=== PATIENT | female | born 1975 | race Caucasian/White ===

== ENCOUNTER 2017-10-23 05:58 | Inpatient (IN) | payer OTHER ==
[~2017-10-23] VITALS: Ht 154.9 cm; Wt 96.2 kg
--- NOTE | 2017-10-23 09:50 | History & Physical ---
General Information and HPI MD Statement: I have seen and personally examined BRANDEN CHAN and documented this H&P. The patient is a 42 year old female at [37] weeks and [1] days gestation who presented with a chief complaint of electice repeat c/s]. Source of Information: patient Exam Limitations: no limitations History of Present Illness: 42yi, , 37 1/7wks, here for elective repeat c/s due to chronic HTN and preeclampsia.she has no complaints. denies headache, no blur vision or epigastric pain, denies ctxs, no VB or LOF, fy2lamee GFM. care started at 8 wks, issues: 1. h/o HTN in 2010, she took Norvascfor 2 years, but she did not continue as per pt, she did not take any medication during this , BP was normal till 33 wk, then became labile, 24 hr urine protein 350mg on 10/20/2017.2 . h/o demise at 26 wks. 3. prior c/s x 2, 4. h/o hypothyroidism, not taking medication . 5. obesity 6.AMA Allergies/Medications Allergies: Coded Allergies: No Known Allergies (10/23/17) Home Med list [Motrin] 800 MG PO Q6P PRN UTERINE CRAMPING Compliance With Home Meds: GOOD Past History gravity meter observer History : 5 Para: 2 Last Menstrual Period: 02/05/2017 Estimated Delivery Date: 11/12/2017 Past gravity meter observer History: HTN- induced Past Pregnancies Past Pregnancies: Date of Delivery: 12/04/200311/2006 Gestational Age: 37wks and 40wks Weight: [id number] Type of Delivery: Anesthesia: spinal Complications: none Medical History Blood Transfusion Hx: No Neurological: NONE EENT: NONE Cardiovascular: hypertension Respiratory: NONE Gastrointestinal: GERD Hepatic: NONE Renal: NONE Musculoskeletal: NONE Psychiatric: NONE Endocrine: hypothyroidism, obesity Blood Disorders: NONE Cancer(s): NONE 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 Home Smoking Status: Never Smoked ETOH Use: denies use Illicit Drug Use: denies illicit drug use Review of Systems Review of Systems Constitutional: Reports: no symptoms. EENTM: Reports: no symptoms. Cardiovascular: Reports: no symptoms. Respiratory: Reports: no symptoms. GI: Reports: no symptoms. Genitourinary: Reports: see HPI. Musculoskeletal: Reports: no symptoms. Skin: Reports: no symptoms. Neurological/Psychological: Reports: no symptoms. Hematologic/Endocrine: Reports: no symptoms. Immunologic/Allergic: Reports: no symptoms. All Other Systems: Reviewed and Negative Date of LMP: 02/05/17 Post Menopausal: No Exam & Diagnostic Data Last 24 Hrs of Vital Signs/I&O Vital Signs Date Time Temp Pulse Resp B/P B/P Pulse O2 O2 Flow FiO2 Mean Ox Delivery Rate 10/23 0631 138/77 Intake & Output 10/23 1600 10/23 0800 10/23 0000 Intake Total Output Total Balance Patient 96.162 kg Weight Obstetric Exam Wgt Gained During : 14lb Pelvimetry: adequate Dilation (cm): 0 Effacement (%): 0 Station: -3 Membranes: intact Fluid: unknown Fundal Height (cm): 37 Multiple Gestation? No Contractions: occasional #1 - FHR Baseline: 130 Category: 1 Estimated Weight: 3000g Presentation: vertex Patient for Induction? No Physical Exam: VSS CV RRR Lungs CTA B/L Abdomen: gravid, soft, nontender. ext: DCT (-) Labs Blood Type & Rh: O positive Antibody Screen: negative Hct/Hgb & Platelets #1: 12.5/40.6%,[id number] Hct/Hgb & Platelets #2: 11.9/38.6%,[id number] Rubella: immune VDRL #1: negative VDRL #2: negative HbsAg: negative HIV #1: negative HIV #2 negative 1 Hr P Group B Strep: negative Initial Ultrasound: IUP at 8wks Anatomy Ultrasound: nl Genetic Testing: nl Last 24 Hrs of Labs/Azar: Microbiology 10/24 851 URINE ROUT: Urine Culture - COLB 10/24 603 URINE ROUT: Urine Culture - COLB Assessment/Plan Assessment/Plan: 42yo, 37 1/7wks, chronic HTN, preeclampsia, prior c/s, obsesity,AMA 1.admit pt, admission labs 2. R/B/A of repeat c/s, including but not limit to bleeidng, infection, damage to organs, wound infection, secondary helaing of wound, etc, d/w pt in detail, she understand, all questions ans wered, informed consent obtained. will proceed to c/s. OR team informed As Ranked By This Provider Problem List: 1. 2. Previous delivery affecting 3. Hypertension affecting 4. AMA (advanced maternal age) multigravida 35+ 5. Obesity Core Measures Venous Thromboembolism VTE Risk Factors / No Mechanical VTE Prophylaxis d/t LowRisk-No Interven Req'd No VTE Pharm Prophylaxis d/t LowRisk-No Interven Req'd Attending MD Review Statement Attending Statement Attending MD Statement: examined this patient, discussed with family, discussed w/nursing
--- NOTE | 2017-10-23 10:26 | Operative Report ---
Operative/Inv Procedure Report Surgery Date: 10/23/17 Name of Procedure: Repeat low transverse section via Pfannenstiel Pre-Operative Diagnosis: , 37 1/7wks IUP, chronic hypertension with superimposed preeclampsia, prior section, advanced maternal age, obesity Post-Operative Diagnosis: Same Estimated Blood Loss: 600ml Surgeon/Lighting Designer: Louie WAGNER,Maryam Keyes MD Anesthesia: spinal IV Fluids: 800 mL lactated Ringer's Urine Output: 100 mL clear urine at the end of procedure Specimens: Placenta Complications: None Condition: Stable Operative Indication: 42-year-old, term , prior section, chronic hypertension with superimposed preeclampsia. Operative/Procedure Note Note: The patient was taken to the operating room where spinal anesthesia was found to be adequate. She was then prepared and draped in the normal sterile fashion in the dorsosupine position with a leftward tilt. A Pfannenstiel skin incision was then made with the scalpel and carried through to the underlying layer of the fascia with the Bovie. The fascia was incised in the midline and the incision extended laterally with the Sequeira scissors. The inferior aspect of this fascial incision was then grasped with the Kwame clamps, elevated, and the underlying rectus muscle dissected off with Sequeira scissors. Attention was then turned to the superior aspect of this incision which, in a similar fashion, was grasped, tented up with the Kwame clamps, and the rectus muscle dissected off with Sequeira scissors. The rectus muscle were then in the midline, and the peritoneum identified, entered bluntly. The peritoneum incision was then extended superiorly and inferiorly with good visualization of the bladder. The bladder blade was then inserted and the vesicouterine peritoneum identified, grasp with the pickups and entered sharply with the Metzenbaum scissors. The incision was then extended laterally and the bladder flap created digitally . The bladder blade was then reinserted and the lower uterine segment incised in a transverse fashion with the scalpel. The incision was then extended laterally. The bladder blade was removed and the infant head delivered atraumatically. Nose and mouth was suctioned with the suction bulb and cord clamped and cut. The was handed off to the waiting pediatricians. The placenta was then removed manually, the uterus exteriorized, and cleared of call clots and debris. The uterine incision was repaired with 0 Vicryl in a running locked fashion. A second layer of the same suture was used to obtain excellent hemostasis. The uterus returned to the abdomen. The gutters were cleared of all clots, 1 g Lupillo was placed at uterine incision line. The peritoneum was closed with 3-0 Vicryl. 2-0 Vicryl was used to reapproximate the rectus muscles. The fascia was closed with 0 Vicryl in a running fashion. The skin was closed with 4-0 Monocryl subcuticularly. The patient tolerated the procedure well. Sponge, lap and needle counts were correct. The patient was taken to the recovery room in stable condition. Findings: live female infant as cephalic presentation, ÁLVARO position, nuchal cord 1, pediatrics present at delivery, Apgars 9 and 9, weight 6 lbs. 12 oz., normal uterus, tubes and ovaries.
--- NOTE | 2017-10-24 10:13 | PN- Post Delivery/GYN ---
Subjective Subjective: feeling well Review of Systems Constitutional: Reports: no symptoms. Denies: chills, fever. EENTM: Denies: blurred vision, double vision, visual changes. Cardiovascular: Reports: edema. Denies: chest pain, orthopena. Respiratory: Denies: cough. Gastrointestinal: Denies: diarrhea, nausea, vomiting. Neurological/Psychological: Denies: anxiety, depressed. Objective Last 24 Hrs of Vital Signs/I&O vss Physical Exam General Appearance Alert, Oriented X3, Cooperative, No Acute Distress Cardiovascular Regular Rate Lungs Clear to Auscultation Abdomen Soft, incision clean fundus firm Assessment/Plan Assessment/Plan pod #1 vss afebrile oob Problem List: 1. Hypertension affecting Attending MD Review Statement Attending Statement Attending MD Statement: examined this patient, discussed with nursing
[2017-10-24 10:22] LABS: ABSOLUTE BASOPHIL COUNT 0 /CUMM (0.0-0.2); ABSOLUTE EOSINOPHIL COUNT 0.2 /CUMM (0.0-0.7); ABSOLUTE GRANULOCYTE CT 8.5 /CUMM (1.4-6.5); ABSOLUTE LYMPH COUNT 1.7 /CUMM (1.2-3.4); ABSOLUTE MONOCYTE COUNT 0.6 /CUMM (0.10-0.60); BASOPHIL % 0.3 % (0.0-2.0); EOSINOPHIL % 1.5 % (0-5); GRANULOCYTE % 77.3 % (42.2-75.2); MEAN CORPUSCULAR HGB 30.8 PG (27.0-31.0); MEAN CORPUSCULAR HGB CONC 34.1 G/DL (33.0-37.0); MEAN CORPUSCULAR VOLUME 90.4 FL (81.0-99.0); PLATELET COUNT 147 /CUMM (130-400); RBC DISTRIBUTION WIDTH 15.4 % (11.5-14.5); RED BLOOD CELL CT 3.83 /CUMM (4.20-5.40); WHITE BLOOD CELL COUNT 10.9 /CUMM (4.8-10.8)
[2017-10-24 10:41] LABS: HEMATOCRIT 34.6 % (37-47)
--- NOTE | 2017-10-25 15:13 | PN- OBGYN ---
Surgical Brief Attending Note Brief Attending Note: PT FEELING WELL. C/O FATIGUE. 2 EPISODES OF DIZZINESS WHEN GETTING OOB TOO QUICKLY YESTERDAY. NONE TODAY. WALKING WITHOUT DIFFICULTY. PAIN WELL CONTROLLED W/ PERCOCET AND MOTRIN. NO TRUJILLO / CP / SOB. NO N/V. +DANIELA PO. +FLATUS. +BF. INC SPIROMETRY GETTING EASIER. AFEB, 98%RA, 88, 140/70, 16 NAD CTA B/L RRR ABD SOFT NT ND FF INC C/D/I W/ STERIS CARA MIN LOCHIA EXT NT TR B/L PEDAL EDEMA HCT 34.6 A/P POD 2 S/P RPT C/S FOR PEC @ 37WKS, DOING WELL -ENC OOB / AMB / INCENTIVE SPIROMETRY -PAIN MGMT ROUTINE POP CARE
[2017-10-26] MEDS ORDERED: Motrin PO (09:21)
[2017-10-26 10:43] LABS: ABSOLUTE BASOPHIL COUNT 0 /CUMM (0.0-0.2); ABSOLUTE EOSINOPHIL COUNT 0.3 /CUMM (0.0-0.7); ABSOLUTE GRANULOCYTE CT 6.8 /CUMM (1.4-6.5); ABSOLUTE LYMPH COUNT 1.2 /CUMM (1.2-3.4); ABSOLUTE MONOCYTE COUNT 0.5 /CUMM (0.10-0.60); BASOPHIL % 0.2 % (0.0-2.0); EOSINOPHIL % 3.3 % (0-5); GRANULOCYTE % 77.6 % (42.2-75.2); HEMATOCRIT 31.8 % (37-47); MEAN CORPUSCULAR HGB 31.2 PG (27.0-31.0); MEAN CORPUSCULAR HGB CONC 34.7 G/DL (33.0-37.0); MEAN CORPUSCULAR VOLUME 89.9 FL (81.0-99.0); MEAN PLATELET VOLUME 6.8 FL (7.4-10.4); PLATELET COUNT 156 /CUMM (130-400); RBC DISTRIBUTION WIDTH 15.1 % (11.5-14.5); RED BLOOD CELL CT 3.54 /CUMM (4.20-5.40); WHITE BLOOD CELL COUNT 8.8 /CUMM (4.8-10.8)
--- NOTE | 2017-10-26 13:28 | PN- Post Delivery/GYN ---
Subjective Subjective: Patient feels as though she's taken a few steps backwards in her recovery. She feels exhausted and has had a low-grade TRUJILLO. Her appetite is not good, and she describes episodes of her whole body feeling "hot". She denies scotomata, any vision changes, epigastric pain, or N&V. Patient was upset and nervous that her baby was losing weight as was going slowly, and when supplemented, the baby had projectile vomiting. Review of Systems Constitutional: Reports: malaise, weakness. EENTM: Denies: blurred vision, double vision, visual changes. Cardiovascular: Reports: edema (in both LEs and her hands feel). Respiratory: Reports: no symptoms. Gastrointestinal: Denies: abdominal pain. Genitourinary: Reports: no symptoms. Musculoskeletal: Reports: neck pain. Skin: Reports: no symptoms. Neurological/Psychological: Denies: headache. Hematologic/Endocrine: Denies: bleeding. Immunologic/Allergic: Reports: no symptoms. All Other Systems: Reviewed and Negative Objective Last 24 Hrs of Vital Signs/I&O Vital Signs Date Time Temp Pulse Resp B/P B/P Pulse O2 O2 Flow FiO2 Mean Ox Delivery Rate 10/26 1331 97.9 78 20 150/68 Physical Exam General Appearance Alert, Oriented X3, Cooperative, No Acute Distress Skin No Rashes Neck Supple Cardiovascular Regular Rate Lungs Normal Air Movement Abdomen Soft, No Hepatospenomegaly, No Masses Neurological Reflexes 2+, no clonus Extremities unchanged bilateral pedal edema Current Medications: Current Medications Sig/Krish Start time Last Medication Dose Route Stop Time Status Admin Acetaminophen 1,000 MG Q6P PRN 10/23 1145 AC N/A 1 UNIT IV Bisacodyl 10 MG DAILY NEEDED PRN 10/23 0900 AC ID Diphenhydramine HCl 25 MG Q6P PRN 10/23 0800 AC 10/23 IV 1321 Docusate Sodium 100 MG AT BEDTIME NEED.. 10/23 09 AC 10/27 PO 0143 Enoxaparin Sodium 40 MG 2100 10/23 2100 AC 10/26 SC 210 Ibuprofen 800 MG .STK-MED ONE 10/26 1938 DC PO 10/26 193 Ibuprofen 800 MG .STK-MED ONE 10/26 1333 DC PO 10/26 1334 Ibuprofen 800 MG Q6P PRN 10/23 0900 AC 10/27 PO 0759 Labetalol HCl 200 MG BID 10/26 1241 AC 10/26 PO 2106 Metoclopramide HCl 10 MG Q6P PRN 10/23 08 AC IV Naloxone HCl 0.2 MG .Q5MINS PRN 10/23 08 AC IV Omeprazole 40 MG DAILY NEEDED PRN 10/24 1930 AC 10/25 PO 1921 Oxycodone/ 1 TAB Q4P PRN 10/23 0900 AC 10/27 Acetaminophen PO 075 Oxycodone/ 2 TAB Q4P PRN 10/23 09 AC Acetaminophen PO Simethicone 80 MG Q6P PRN 10/24 1415 AC 10/25 PO 2121 Last 24 Hrs of Labs/Azar: Laboratory Tests 10/26/17 1200: Urine Color YEL, Urine Clarity HAZY H, Urine pH 6.0, Ur Specific [place] 1.020, Urine Protein NEG, Urine Ketones NEG, Urine Nitrite NEG, Urine Bilirubin NEG, Urine Urobilinogen 0.2, Ur Leukocyte Esterase NEG, Ur Microscopic SEDIMENT EXAMINED, Urine RBC 5-10 H, Ur Epithelial Cells MANY H, Urine Bacteria FEW H, Urine Hemoglobin MOD H, Urine Glucose NEG 10/26/17 0950: Estimated GFR > 60, Uric Acid 4.9, AST 57 H, ALT 49, CBC w Diff NO MAN DIFF REQ , RBC 3.54 L, MCV 89.9, MCH 31.2 H, MCHC 34.7, RDW 15.1 H, MPV 6.8 L, Gran % 77.6 H, Lymphocytes % 13.5 L, Monocytes % 5.4, Eosinophils % 3.3, Basophils % 0.2, Absolute Granulocytes 6.8 H, Absolute Lymphocytes 1.2, Absolute Monocytes 0.5, Absolute Eosinophils 0.3, Absolute Basophils 0 Microbiology 10/26 1500 GEN OR/DR: Genital Culture - CAN Cancelled: Cancelled via OE: NOT CORRECT PT 10/26 1500 GEN OR/DR: Genital Culture - CAN Cancelled: Cancelled via OE: NOT CORRECT PT Assessment/Plan Assessment/Plan Preclampsia, extending into the period, s/p repeat C/S at 37w for worsening BPs. Chronic HTN Obesity BPs are still labile on POD3 Plan is to repeat her labs now and I will speak to her about previous HTN meds and starting something now. Problem List: 1. Obesity 2. Status post section 3. Pre-eclampsia affecting with pre-existing hypertension, delivered , current hospitalization Attending MD Review Statement Attending Statement Attending MD Statement: examined this patient, reviewed EMR data (avail), discussed with nursing
--- NOTE | 2017-10-27 09:13 | PN- OBGYN ---
Surgical Brief Attending Note Brief Attending Note: POD#4 pt is resting in bed, c/o feels better today, no complaints.slight headache,no blur vision or epigastric pain. tolerate diet, void without difficulties. ambulating well PE: VSS, BP 124/78 mmHg CV RRR Lungs CTA B/L Abdomen: soft, nontender, uterus firm, fundus below umbilicus, incision D/C/I, lochia mild Ext: edema (+), DCT (-) A/P: 42yo s/p RLTCS for HTN, preeclampsia, POD#4 1. encourage ambulation an dbreastfeeidng 2. labetalol 100mg BID strated yesterday, will continue till 6 wks PP 3. elevated AST 103 (yesrterday was 57), ALT 117, in light of HTN and abnormal LFT, will start MgSO4 for seizure prophylaxis, side effetcs and complications with MgSO4 d/w pt, she understand and agreed with plan. 4. will monitor tahira
[2017-10-27 09:44] LABS: ABSOLUTE BASOPHIL COUNT 0 /CUMM (0.0-0.2); ABSOLUTE EOSINOPHIL COUNT 0.3 /CUMM (0.0-0.7); ABSOLUTE LYMPH COUNT 1.4 /CUMM (1.2-3.4); ABSOLUTE MONOCYTE COUNT 0.4 /CUMM (0.10-0.60); BASOPHIL % 0.3 % (0.0-2.0); EOSINOPHIL % 4.1 % (0-5); GRANULOCYTE % 73.6 % (42.2-75.2); MEAN PLATELET VOLUME 7.2 FL (7.4-10.4); PLATELET COUNT 168 /CUMM (130-400); RBC DISTRIBUTION WIDTH 15.2 % (11.5-14.5); RED BLOOD CELL CT 3.52 /CUMM (4.20-5.40); WHITE BLOOD CELL COUNT 8.1 /CUMM (4.8-10.8)
[2017-10-27 10:58] VITALS: BP 148/78
--- NOTE | 2017-10-28 11:39 | RADIOLOGY REPORT ---
EXAMINATION: XR CHEST CLINICAL INFORMATION: Shallow breath, low O2, chest tightness. COMPARISON: None TECHNIQUE: 2 views of the chest were obtained. FINDINGS: No significant abnormality is noted involving the heart, lungs, mediastinum, bony thorax or soft tissues. IMPRESSION: Normal examination.
--- NOTE | 2017-10-28 11:55 | PN- OBGYN ---
Surgical Brief Attending Note Brief Attending Note: pt /o earlier am, she felt SOB, and she had headaches overnight, Magnesium sulfate d/c'd 9:30AM, Mg level 5.9. After got out of bed and ambulating, pt felt better, no complaints currently. PE: VSS CV RRR Lungs CTA B/L Abdomen: soft, nontender, uterus firm, fundus below umbilicus. incision D/C/I, lochia mild Ext: DCT(-) A/P: 42yo, s/p RLTCS, POD#5, s/p Magnesium sulfate treatment. 1. chest X-ray WNL 2. encourage ambulation 3. will d/c home later PM if pt is stable 4. continue labetalol 200mg BID 5. f/u in office in 1 wk. discharge instructions given.
[2017-10-28] MEDS ORDERED: PERCOCET 5-3251 EACH PO (11:58)
[2017-10-28] MEDS ORDERED: LABETALOL HCL200 M1 PO (11:58)
--- NOTE | 2017-10-31 09:57 | Discharge Summary ---
Visit Information Visit Dates Admission Date: 10/23/17 Discharge Date: 10/28/17 Hospital Course Course Attending Physician: Maryam Palma MD Primary Care Physician: Patient Has No Primary Care Dr Hospital Course: 42-year-old,, she was admitted for repeat section on October 23, 2017. Patient tolerated the procedure well , delivered a viable in cephalic presentation without complications. During the hospital stay, patient remained in stable condition, she tolerates diet, voiding without difficulties, ambulating well. On exam, abdomen was soft, nontender, incision dry clean and intact, lochia mild. Her blood pressure was labile, she was found to have mild elevated liver function test, she received magnesium sulfate for seizure prophylaxis due to preeclampsia. Patient was discharged on October 28, 2017 with instructions given. Complications: None Allergies: Coded Allergies: No Known Allergies (10/23/17) Significant Procedures: Repeat low transverse section Via Pfannenstiel Disposition Summary Disposition Principal Diagnosis: , 37 1/7wks IUP, chronic hypertension with superimposed preeclampsia, prior section, advanced maternal age, obesity Additional Diagnosis: None Discharge Disposition: home or self care Discharge Instructions General Discharge Information Code Status: Full Code Patient's Diet: Regular Patient's Activity: As tolerated Follow-Up Instructions/Appts: Pelvic rest and no heavy lifting for 6 weeks Continue labetalol 200 mg twice a day, follow-up in office in 1 week for blood pressure check Preeclampsia precautions given. Medications at Discharge Discharge Medications: Start taking the following new medications: [Motrin] 800 Milligram ORAL EVERY SIX HOURS NEEDED as needed for UTERINE CRAMPING No Refills Labetalol HCl (Labetalol HCl) 200 MG TABLET 200 Milligram ORAL TWICE DAILY Qty = 30 No Refills Comments: Last Taken: Time: 10/28/2017 at 0900 Oxycodone HCl/Acetaminophen (Percocet 5-325 MG Tablet) 5 MG-325 MG TABLET 2 Tablet ORAL EVERY 4 HOURS NEEDED as needed for PAIN SCALE 7-10 (SEVERE) Qty = 30 No Refills Copies To: Maryam Palma MD Attending Review Statement Documenting Attending: Maryam Palma MD
== END 2017-10-28 14:45 | DRG 540 ==
LOC: GNO 05:58
PROVIDERS: Obstetrics & Gynecology
PROC: 10D00Z1 Extraction of Products of Conception, Low, Open Approach (ICD-10-PCS; principal; 2017-10-23)
DX: O11.4 Pre-existing hypertension with pre-eclampsia, complicating childbirth (principal); O34.211 Maternal care for low transverse scar from previous cesarean delivery; N85.8 Other specified noninflammatory disorders of uterus; O69.81X0 Labor and delivery complicated by cord around neck, without compression, not applicable or unspecified; O99.214 Obesity complicating childbirth; Z68.41 Body mass index [BMI] 40.0-44.9, adult; Z37.0 Single live birth; Z3A.37 37 weeks gestation of pregnancy
CPT/HCPCS: 87070; GNOS; 36415; 71046; 81001; 82570; 87086; J0131; J0690; J1200; J1650; J1885; J3475; J7120

== ENCOUNTER 2017-11-02 15:15 | Inpatient (IN) | payer OTHER ==
[~2017-11-02] VITALS: Ht 154.9 cm; Wt 91.2 kg
[~2017-11-02 15:15] MED LIST: LABETALOL HCL200 M1 PO; Motrin PO; PERCOCET 5-3251 EACH PO
[2017-11-02 16:12] LABS: ABSOLUTE BASOPHIL COUNT 0 /CUMM (0.0-0.2); ABSOLUTE EOSINOPHIL COUNT 0.4 /CUMM (0.0-0.7); ABSOLUTE LYMPH COUNT 1.5 /CUMM (1.2-3.4); ABSOLUTE MONOCYTE COUNT 0.7 /CUMM (0.10-0.60); BASOPHIL % 0.2 % (0.0-2.0); EOSINOPHIL % 4.4 % (0-5); GRANULOCYTE % 72.2 % (42.2-75.2); HEMATOCRIT 36.3 % (37-47); MEAN CORPUSCULAR HGB 30.4 PG (27.0-31.0); MEAN CORPUSCULAR HGB CONC 33.4 G/DL (33.0-37.0); MEAN CORPUSCULAR VOLUME 90.8 FL (81.0-99.0); MEAN PLATELET VOLUME 6.6 FL (7.4-10.4); RBC DISTRIBUTION WIDTH 15.1 % (11.5-14.5); RED BLOOD CELL CT 3.99 /CUMM (4.20-5.40); WHITE BLOOD CELL COUNT 9.6 /CUMM (4.8-10.8)
[2017-11-02 16:15] LABS: PLATELET COUNT 268 /CUMM (130-400)
[2017-11-02] MEDS ORDERED: CITRANATAL B-C1 EACH PO (17:12)
--- NOTE | 2017-11-02 17:39 | ED GENERAL ADULT ---
History of Present Illness General Chief Complaint: General Adult Stated Complaint: SENT BY FOR HIGH BLOOD PRESSURE Source: patient Exam Limitations: no limitations Vital Signs & Intake/Output Vital Signs & Intake/Output Vital Signs Date Time Temp Pulse Resp B/P B/P Pulse O2 O2 Flow FiO2 Mean Ox Delivery Rate 07/06 0313 176/90 07/06 0231 98.1 71 20 170/96 07/06 0225 71 170/96 07/06 0211 98.1 74 20 182/116 07/06 0125 182/116 07/06 0008 74 20 162/86 97 07/05 2301 78 19 179/89 99 Room Air 07/05 2240 173/83 07/05 2238 173/83 07/05 2057 184/89 / 1953 88 20 209/110 100 07/05 1951 209/110 07/05 1804 174/99 07/05 1621 77 15 170/85 99 Room Air 07/05 1614 98.1 73 18 170/85 99 Room Air 07/05 1556 98.4 70 18 184/106 99 Room Air ED Intake and Output / 0000 07/05 1200 Intake Total Output Total Balance Patient 203 lb Weight Allergies Coded Allergies: No Known Allergies (10/23/17) Triage Note: 42F TO ED FOR PREECLAMPSIA, POST September DELIVERY. FOLLOWED BY DR HUTCHINSON. +HEADACHE X1 HOUR. DENIES CP/SOB/PALP. + BLURRED VISION X1 DAY. MANUAL BP 184/106 IN TRIAGE. SPEECH CLEAR, FOCAL NEUROS GROSSLY INTACT Triage Nurses Notes Reviewed? yes : No Patient currently breastfeeds: Yes HPI: Patient presents for evaluation of elevated blood pressure 10 days status . Patient had a section due to her high blood pressure and the possibility of preeclampsia. She was placed on 200 mg of labetalol twice daily. (Masha WAGNER,Robert Tam) Reconcile Medications Labetalol HCl 300 MG TABLET 2 TAB PO BID high blood pressure Labetalol HCl 200 MG TABLET 200 MG PO BID HIGH BLOOD PRESSURE [Motrin] 800 MG PO Q6P PRN UTERINE CRAMPING Oxycodone HCl/Acetaminophen (Percocet 5-325 MG Tablet) 5 MG-325 MG TABLET 2 TAB PO Q4P PRN PAIN SCALE 7-10 (SEVERE) #48/Iron Cb&Glu/FA/B6 (Citranatal B-Calm Combo Pack) 20 MG IRON-1 MG-25 MG/25 MG TABLET.SEQ 1 CAP PO DAILY VITAMIN (Reported) (Ricky Marino MD) Past History Travel History Traveled to [place] past 21 day No Medical History Neurological: NONE EENT: NONE Cardiovascular: hypertension Respiratory: NONE Gastrointestinal: GERD Hepatic: NONE Renal: NONE Musculoskeletal: NONE Psychiatric: NONE Endocrine: hypothyroidism, obesity Blood Disorders: NONE Cancer(s): NONE MAPPING 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 see below for history Family History Hx Contributory? No (Ricky Marino MD) Review of Systems Review of Systems Constitutional: Reports: no symptoms. EENTM: Reports: no symptoms. Respiratory: Reports: no symptoms. Cardiovascular: Reports: no symptoms. GI: Reports: no symptoms. Genitourinary: Reports: no symptoms. Musculoskeletal: Reports: no symptoms. Skin: Reports: no symptoms. Neurological/Psychological: Reports: no symptoms. Hematologic/Endocrine: Reports: no symptoms. Immunologic/Allergic: Reports: no symptoms. All Other Systems: Reviewed and Negative (Ricky Marino MD) Physical Exam Physical Exam General Appearance: SEE BELOW Comments: Gen.: Well-nourished, well-developed, no acute respiratory distress. Head: Normocephalic, atraumatic. Eyes: Normal inspection bilaterally Ears: Normal inspection bilaterally Nose: Normal inspection Throat/mouth : Moist mucosa Neck: Supple, full range of motion, no goiter Heart: Regular rate and rhythm, no murmurs rubs or gallops Lungs: Clear to auscultation bilaterally with normal air entry Chest: Nontender Back: Normal range of motion Abdomen: Soft, nontender, nondistended, normal bowel sounds Extremities: Normal range of motion grossly, equal radial pulses, no cyanosis clubbing or edema Neurologic: Cranial nerves grossly intact, speech is clear Skin: warm and dry Psychiatric: Calm, cooperative, no apparent delusions or hallucinations (Masha WAGNER,Robert Tam) Core Measures ACS in differential dx? No CVA/TIA Diagnosis: No Sepsis Present: No Sepsis Focused Exam Completed? No (Ricky Marino MD) Progress Differential Diagnoses I considered the following diagnoses in my evaluation of the patient: Plan of Care: Orders Procedure Date/time Status Nothing by Mouth 11/03 B Active ICU LAB BUNDLE 11/03 499 Active CBC WITHOUT DIFFERENTIAL 11/03 499 Active Patient Data 11/03 0239 Active Patient Data 11/03 014 Active Saline Lock 11/03 138 Active Misc Message 11/03 138 Active ED Holding Orders 11/03 138 Active Admit to inpatient 11/03 138 Active Vital Signs 11/03 138 Active Code Status 11/03 138 Active Add-on Test (ER Only) 11/02 1650 Active Intake & Output 11/02 155 Active LDH (LACT ACID DEHYDROGENASE) 11/02 1550 Complete URINALYSIS 11/02 1537 Complete TROPONIN LEVEL 11/02 1523 Complete COMPREHENSIVE METABOLIC PANEL 11/02 1523 Complete CBC WITHOUT DIFFERENTIAL 11/02 1523 Complete EKG 11/02 1523 Active Laboratory Tests 11/02/17 1550: Anion Gap 10, Estimated GFR 55 L, BUN/Creatinine Ratio 10.0, Glucose 89, Calcium 9.5, Total Bilirubin 0.5, AST 48 H, ALT 86 H, Alkaline Phosphatase 79, Lactate Dehydrogenase 723 H, Troponin I < 0.01, Total Protein 6.8, Albumin 3.7, Globulin 3.1, Albumin/Globulin Ratio 1.2, CBC w Diff NO MAN DIFF REQ, RBC 3.99 L, MCV 90.8, MCH 30.4, MCHC 33.4, RDW 15.1 H, MPV 6.6 L, Gran % 72.2, Lymphocytes % 15.9 L, Monocytes % 7.3, Eosinophils % 4.4, Basophils % 0.2, Absolute Granulocytes 7.0 H, Absolute Lymphocytes 1.5, Absolute Monocytes 0.7 H, Absolute Eosinophils 0.4, Absolute Basophils 0 11/02/17 1421: Urine Color YEL, Urine Clarity CLEAR, Urine pH 6.0, Ur Specific Hardin 1.010, Urine Protein TRACE H, Urine Ketones NEG, Urine Nitrite POS H, Urine Bilirubin NEG, Urine Urobilinogen 0.2, Ur Leukocyte Esterase SMALL H, Ur Microscopic SEDIMENT EXAMINED, Urine RBC 1-3, Urine WBC 5-10 H, Ur Epithelial Cells RARE, Urine Bacteria MOD H, Urine Hemoglobin MOD H, Urine Glucose NEG Comments: 11/02/2017 5:37:57 PM patient's case discussed with Dr. Gallagher who is requesting a medicine consult for management of patient's hypertension. 11/02/2017 5:45:13 PM patient's case discussed with Dr. Perkins who agrees with an increased dose of labetalol and reevaluation of blood pressure. 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 (Masha WAGNER,Robert Tam) Differential Diagnoses I considered the following diagnoses in my evaluation of the patient: post pre-eclampsia, hyerptensive emergency/urgency vs other. Diagnostic Imaging: Viewed by Me: CT Scan. Discussed w/RAD: CT Scan. Radiology Impression: PATIENT: BRANDEN CHAN PRESENT AGE: 42 PATIENT ACCOUNT NO: [id number] : 76 LOCATION: [facility] ORDERING PHYSICIAN: Ricky Marino MD SERVICE DATE: 11/03/17 EXAM TYPE: CAT - CT HEAD WO IV CONTRAST EXAMINATION: CT HEAD WITHOUT CONTRAST CLINICAL INFORMATION: Headache. COMPARISON: None TECHNIQUE: Contiguous axial imaging was performed from the skull base to vertex without intravenous administration of contrast. DLP: 606.95 mGy-cm FINDINGS: There is no evidence of acute intracranial hemorrhage or territorial infarction. No abnormal mass effect or midline shift is seen. Boucher to white matter differentiation is well preserved. No extra-axial fluid collections are identified. The ventricles are normal in size. There is no abnormal attenuation within the brain parenchyma. The osseous structures and soft tissues are normal. The mastoid air cells and visualized portions of the paranasal sinuses are well aerated. IMPRESSION: No acute intracranial pathology. DICTATED BY: Dagoberto Junior MD DATE/TIME DICTATED:11/03/17224 SENIOR WINDOWS SYSTEMS ADMINISTRATOR:BEATRIZ DATE/TIME TRANSCRIBED:11/03/17224 CONFIDENTIAL, DO NOT COPY WITHOUT APPROPRIATE AUTHORIZATION. <Electronically signed in Other Vendor System> SIGNED BY: Dagoberto Junior MD 11/03/17 0230 Initial ED EKG: sinus, no acute changes (Ned WAGNER,Ricky Waters) Departure Departure Disposition: HOME OR SELF CARE Condition: Stable Referrals: Patient Has No Primary Care Dr (PCP/Family) Additional Instructions: INCREASE YOUR DOSE OF LABETOLOL TO 400MG TWICE DAILY. Begin taking hydrochlorothiazide. Low-salt diet. Follow-up with the [facility] as soon as possible for repeat blood pressure evaluation and possible medication adjustments. Please update Dr. Gallagher on your progress. Return if any concerns or sudden worsening. Thank you for choosing the [facility] Department for your care. It was a pleasure to serve you today. Robert Flanagan M.D. [facility] Departure Forms: Customer Survey General Discharge Information (Masha WAGNER,Robert Tam) Departure Clinical Impression Primary Impression: Hypertensive urgency Prescriptions: Current Visit Scripts Labetalol HCl 2 TAB PO BID #120 TAB Comments 11/02/17, 22:28... pt comfortable, still with headache, sbp 180's... pt wishes to go home... will give dose of enalapril and labetolol and follow up in 1 hour. 11/03/17, 1:04am... pt sleeping comfortably, headache resolved, vision changes resolved.... pt wishes to go home... will give labetolol 600mg bid... pt to return later today if not feeling well. 11/03/17, 1:40am... pt's headache returns, blurry vision... sbp 184... will give labetolol 20mg hydralazine 10mg, head ct scan... pt to be admitted. 11/03/17, 1:57am... discussed with dr. hutchinson... Admission Note Spoke With: Dawna Bronson MD Documentation of Exam: Documentation of any treatments & extenuating circumstances including Concerns Regarding Discharge (functional status, medication knowledge or non-compliance, living conditions, etc.) that warrant an admission rather than observation: pt with hyperstensive emergency, possibly post- pre-eclampsia (although without proteinuria)... pt merits iv blood pressure medications, consider labetolol gtt if not responding. (Ned WAGNER,Ricky Waters) Critical Care Note Critical Care Note Critical Care Time: 75-104 min (Ned WAGNER,Ricky Waters)
[2017-11-03] MEDS ORDERED: LABETALOL HCL300 M1 PO (01:04)
--- NOTE | 2017-11-03 02:29 | History & Physical ---
Zoie Monaco 11/03/17 0226: General Information and HPI History of Present Illness: Jeffrey Moses is a 42 YO female with PMHx. of Hypothyroidism, HTN, and carpal tunnel syndrome who presents to the ED with a chief concern of "headache and blurry vision." Patient states she recently gave to her third child prematurely 10 days s/p . Patient states the procedure was expedited due to her repeated elevations in blood pressure. Patient states she delivered at 37 weeks and that after delivery her blood pressure became elevated. Patient states that she was given Magnesium in the hospital and subsequently sent home with instructions to monitor her blood pressure. Patient states she has been experiencing symptoms of headache, blurry vision, and peripheral edema. Patient denies symptoms of fever, cough, dyspnea, abdominal pain, chest pain, diarrhea, and weakness. Patient states her DIRECTOR OF PROFESSIONAL SERVICES had prescribed her baby aspirin to prevent preelampsia during the , and once she stopped taking Aspirin around 36 weeks her blood pressure went up within 3 days. Patient states her blood pressure has since been trending in the 160s. Patient, for the most part, denies any family history of cardiac issues except that her father had a CABG procedure. Patient denies smoking or any alcohol consumption. 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 Patient is a mother of three children, 1 boy and two girls. Patient states all her children were born via C- section. Allergies/Medications Allergies: Coded Allergies: No Known Allergies (10/23/17) Home Med list Labetalol HCl 300 MG TABLET 2 TAB PO BID high blood pressure Labetalol HCl 200 MG TABLET 200 MG PO BID HIGH BLOOD PRESSURE [Motrin] 800 MG PO Q6P PRN UTERINE CRAMPING Oxycodone HCl/Acetaminophen (Percocet 5-325 MG Tablet) 5 MG-325 MG TABLET 2 TAB PO Q4P PRN PAIN SCALE 7-10 (SEVERE) #48/Iron Cb&Glu/FA/B6 (Citranatal B-Calm Combo Pack) 20 MG IRON-1 MG-25 MG/25 MG TABLET.SEQ 1 CAP PO DAILY VITAMIN (Reported) Past History Travel History Traveled to [place] past 21 day No Medical History Neurological: NONE EENT: NONE Cardiovascular: hypertension Respiratory: NONE Gastrointestinal: GERD Hepatic: NONE Renal: NONE Musculoskeletal: NONE Psychiatric: NONE Endocrine: hypothyroidism, obesity Blood Disorders: NONE Cancer(s): NONE 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 EENTM: Reports: blurred vision, double vision, visual changes. Cardiovascular: Denies: chest pain, orthopena, palpitations. Respiratory: Denies: cough, orthopnea, short of breath. GI: Denies: abdominal pain. Genitourinary: Denies: dysuria. Musculoskeletal: Denies: joint pain, muscle pain. Skin: Denies: no symptoms. Neurological/Psychological: Reports: headache. Denies: numbness. Exam & Diagnostic Data Last 24 Hrs of Vital Signs/I&O Vital Signs Date Time Temp Pulse Resp B/P B/P Pulse O2 O2 Flow FiO2 Mean Ox Delivery Rate 11/03 0225 71 170/96 / 0211 98.1 74 20 182/116 07/06 0125 182/116 07/06 0008 74 20 162/86 97 07/05 2301 78 19 179/89 99 Room Air 07/05 2240 173/83 07/05 2238 173/83 07/05 2057 184/89 07/05 1953 88 20 209/110 100 07/05 1951 209/110 07/05 1804 174/99 07/05 1621 77 15 170/85 99 Room Air 07/05 1614 98.1 73 18 170/85 99 Room Air 07/05 1556 98.4 70 18 184/106 99 Room Air Intake & Output 11/03 0800 07/06 0000 07/05 1600 Intake Total Output Total Balance Patient 203 lb Weight Physical Exam General Appearance Alert, Oriented X3, Cooperative, No Acute Distress Skin No Rashes HEENT Atraumatic, PERRLA Neck Supple, No JVD Lymphatic Cervical nl Cardiovascular Normal S1, Normal S2 Lungs Clear to Auscultation Abdomen Soft, No Tenderness Neurological Strength at 5/5 X4 Ext, Normal Tone Extremities Normal Pulses Assessment/Plan Assessment: Problem List * Hypertensive Urgency * h/o Preeclampsia * h/o HTN * h/o Hypothyroidism * , - Admit to ICU for cardiac monitoring and adequate control of blood pressure with IV Labetalol gtt - Hypertensive Urgency should be managed appropriately to target normal values over the next 24-48 hours with IV blood pressure lowering agents to prevent cardiac, neurological, and acute kidney injury - Serial Troponin and EKG monitoring - Head CT w/o Contrast: No acute intracranial pathology. - Pertinent Lab findings: Cr 1.1, AST 49, ALT 87 - AM Cardiology Consult - DVT PPx. As Ranked By This Provider Problem List: 1. Hypertensive urgency 2. Status post section 3. Pre-eclampsia affecting with pre-existing hypertension, delivered , current hospitalization Core Measures/Misc (01/15) Acute Coronary Syndrome ACS Diagnosis: No Congestive Heart Failure Congestive Heart Failure Diagnosis No Cerebrovascular Accident CVA/TIA Diagnosis: No VTE (View Protocol) VTE Risk Factors Acute Medical Illness No Mechanical VTE Prophylaxis d/t N/A MechProphylax Ordered No VTE Pharm Prophylaxis d/t NA PharmProphylax ordered Sepsis (View protocol) Sepsis Present: No If YES complete Sepsis Event Note If YES complete Sepsis Event Note Rashel Wall 11/03/17 0504: Core Measures/Misc (01/15) Sepsis (View protocol) If YES complete Sepsis Event Note If YES complete Sepsis Event Note Resident Review Statement Resident Statement: examined this patient, discussed with quality assurance intern Other Findings: Ms Murphy is a 42 year old woman w/ a PMHx of hypothyroidism(not on any LT4) , hypertension, class 2 obesity, day 11 after (10/23). She has a history of HTN, and was treated intermittently with anti-hypertensives; and was started on ASA only. She was found to have had high blood pressure and preeclampsia after she underwent . She was treated w/ MagSulf drip for the treatment of pre-ecclampsia. She also had elevated transaminases. She was started on 200 mg labetalol twice daily po at the time of dc. Also reported headache, and blurry vision for the last 1 day, but no epigastric pain. She repoted pedal edema, but no erythema. While she was in the ER, she had blood pressure elevated associated with headache. Initial plan was to discharge the patient on labetalol 600 mg twice a day, but she continued to have headache and blurry vision. Labetalol 200 mg by mouth HCl 12.5 mg by mouth, labetalol 20 g IV, labetalol 20 mg IV, enalaprilat 1.25 IV, hydralazine 5 mg IV, hydralazine 10 mg IV, labetalol 20 g IV. At the time of admission-vitals temperature 98.4, pulse rate 70, respiration 18, blood pressure 184/106, 99% on room air. General Exam: AAOx3, No acute distress, Skin: No rashes, no breakdown;HEENT: PERRLA, EOMI;Neck: Supple, No JVD; No cervical lymphadenopathy;CVS: Reg Rate, Normal S1,S2, No MGR;Resp: Normal air entry, no ronchi/rales;Abdomen: Soft, No tenderness, Normal Bowel Sounds;Neuro: Normal Speech, Strength 5/5 b/l x 4 extremities, Sensation intact, CN III-XII NL, Reflexes 2+;Extremities: No cyanosis, 3+ pedal edema. Blood pressure trend in the emergency room since 11/02 4 PM:184/106-->170/85--> 170/85-->174/99-->209/110-->184/84-->173/83-->179/89-->163/86-->182/116 Pertinent lab findings: WBC 9.6, hemoglobin 12.1, platelet count 268. Sodium 142, potassium 4.7, chloride 106, bicarbonate 26, anion gap 10 BUN 11, creatinine 1.1. (Baseline 0.8-10/27/2017) AST 48, ALT 86, alkaline phosphatase 79, lactate dehydrogenase 273 AST trend 57(10/26)-->103(10/27)-->48(11/02) ALT trend 49(10/26)-->117(10/27)-->86(11/02) Urinalysis revealed trace protein, urine nitrite positive. Etiology in her case is pre-ecclampsia which is usually within 6 wks, which needs to be aggressively addressed. Other complications ecampsia with seizures, HELLP syndrome should be cautiously watched. In regards to his etiology, it could be superimposed pre-eclampsia. Problem list: 1. Post pre-eclampsia 2. Hypertensive urgency 3. h/o hypothyroidism ( not on any meds) - Admit to the ICU for labetolol drip - In Shop Service Technician consult. - Check LFTs, CBCs daily - Start 20mg iv over 2 min w/ recurrent doses every 10' till SBP < 140, and start the drip at 2mg/min. Discussed w/ pharmacy+attending. -Start po labetolol in the am. -Check EKGs and Trops. -Monitor for proteinuria, platelets. -Supplemental oxygen as needed -Tylenol for headache, and monitor for worsening headache -Serial abdominal exams -Check LDH daily, if possible -Check TSHR. DVT Ppx- heparin sc. Full code
--- NOTE | 2017-11-03 02:30 | CT SCAN REPORT ---
EXAMINATION: CT HEAD WITHOUT CONTRAST CLINICAL INFORMATION: Headache. COMPARISON: None TECHNIQUE: Contiguous axial imaging was performed from the skull base to vertex without intravenous administration of contrast. DLP: 606.95 mGy-cm FINDINGS: There is no evidence of acute intracranial hemorrhage or territorial infarction. No abnormal mass effect or midline shift is seen. Boucher to white matter differentiation is well preserved. No extra-axial fluid collections are identified. The ventricles are normal in size. There is no abnormal attenuation within the brain parenchyma. The osseous structures and soft tissues are normal. The mastoid air cells and visualized portions of the paranasal sinuses are well aerated. IMPRESSION: No acute intracranial pathology.
[2017-11-03 04:52] LABS: ABSOLUTE BASOPHIL COUNT 0 /CUMM (0.0-0.2); ABSOLUTE EOSINOPHIL COUNT 0.4 /CUMM (0.0-0.7); ABSOLUTE GRANULOCYTE CT 7.8 /CUMM (1.4-6.5); ABSOLUTE LYMPH COUNT 1.6 /CUMM (1.2-3.4); ABSOLUTE MONOCYTE COUNT 0.7 /CUMM (0.10-0.60); BASOPHIL % 0.2 % (0.0-2.0); EOSINOPHIL % 3.8 % (0-5); GRANULOCYTE % 73.8 % (42.2-75.2); HEMATOCRIT 37.1 % (37-47); MEAN CORPUSCULAR HGB 30.5 PG (27.0-31.0); MEAN CORPUSCULAR HGB CONC 33.5 G/DL (33.0-37.0); MEAN PLATELET VOLUME 6.6 FL (7.4-10.4); PLATELET COUNT 291 /CUMM (130-400); RBC DISTRIBUTION WIDTH 14.9 % (11.5-14.5); RED BLOOD CELL CT 4.08 /CUMM (4.20-5.40); WHITE BLOOD CELL COUNT 10.5 /CUMM (4.8-10.8)
[2017-11-03 08:00] VITALS: BP 152/84
--- NOTE | 2017-11-03 08:07 | Cons- CRCU ---
Vasile Rodriguez 11/03/17 0807: General Information and HPI Consulting Request Date of Consult: 11/02/17 Requested By: Dr. Bronson Reason for Consult: Hypertensive urgency s/p due to preeclampsia 10days ago Source of Information: patient History of Present Illness: 42 year old F with a PMH significant for HTN and hypothyroidism who presented to the ED c/o headache and blurry vision. The patient states she was put on HTN medication by her PCP for about two years before stopping due to normalization of BP. Of note, patient is s/p on october 22 ago due to chronic htn with superimposed preeclampsia that was managed with aspirin. On discharge, she was prescribed labetalol 200mg BID and pt was compliant. On 11/02 patient states she went for her checkup where it was found she had a BP "in the 170s" and was then advised to go to the ED. Upon arrival, pt had BP of 184/106 going as high as 209/110, complaining of a strong diffuse headache accompanied by blurry vision. Head CT on admit was negative for intracranial pathology -- she was then transferred to the ICU for management of hypertensive urgency. Allergies/Medications Allergies: Coded Allergies: No Known Allergies (10/23/17) Home Med List: Labetalol HCl 300 MG TABLET 2 TAB PO BID high blood pressure Labetalol HCl 200 MG TABLET 200 MG PO BID HIGH BLOOD PRESSURE [Motrin] 800 MG PO Q6P PRN UTERINE CRAMPING Oxycodone HCl/Acetaminophen (Percocet 5-325 MG Tablet) 5 MG-325 MG TABLET 2 TAB PO Q4P PRN PAIN SCALE 7-10 (SEVERE) #48/Iron Cb&Glu/FA/B6 (Citranatal B-Calm Combo Pack) 20 MG IRON-1 MG-25 MG/25 MG TABLET.SEQ 1 CAP PO DAILY VITAMIN (Reported) Current Medications: Current Medications Sig/Krish Start time Last Medication Dose Route Stop Time Status Admin Acetaminophen 650 MG ONCE ONE 11/03 644 DC 11/03 PO 11/03 Acetaminophen 1,000 MG ONCE ONE 11/02 1944 DC 11/02 N/A 1 UNIT IV 11/02 Acetaminophen 0 .STK-MED ONE 11/03 1939 DC IV Enalaprilat 1.25 MG STAT STA 07/05 2240 DC 07/ IV 11/02 2241 2240 Enalaprilat 0 .STK-MED ONE 11/02 2233 DC IV Enalaprilat 1.25 MG STAT STA 11/02 2223 CAN IV 11/02 2224 Heparin Sodium 5,000 UNIT Q8 11/03 0600 AC 11/03 (Porcine) SC 0623 Hydralazine HCl 0 .STK-MED ONE 11/03 0227 DC .ROUTE Hydralazine HCl 10 MG ONCE ONE 11/03 0145 DC 11/03 IV 11/03 0146 0231 Hydralazine HCl 5 MG ONCE ONE 11/02 2245 DC 07/ IV 11/02 2246 2238 Hydrochlorothiazide 12.5 MG ONCE ONE 11/02 191 DC 11/02 PO 11/02 191 195 Ketorolac 30 MG ONCE ONE 11/02 2345 DC 11/02 Tromethamine IV 11/02 2346 2354 Ketorolac 0 .STK-MED ONE 11/02 2337 DC Tromethamine .ROUTE Labetalol HCl 400 MG Q3H 11/03 0815 AC Dextrose/Water 400 ML IV Labetalol HCl 20 MG ONCE ONE 11/03 0500 DC 07 IV 11/03 0501 0626 Labetalol HCl 200 MG Q24H 11/03 0415 DC 11/03 Dextrose/Water 200 ML IV 0627 Labetalol HCl 0 .STK-MED ONE 11/03 0149 DC IV Labetalol HCl 20 MG ONCE ONE 11/03 0145 DC 11/03 IV 11/03 0146 0211 Labetalol HCl 20 MG ONCE ONE 11/02 2230 DC 07/ IV 11/02 223 2238 Labetalol HCl 20 MG ONCE ONE 11/02 194 DC 07/ IV 11/02 194 1951 Labetalol HCl 0 .STK-MED ONE 11/02 1940 DC IV Labetalol HCl 200 MG ONCE ONE 11/02 174 DC 07/ PO 11/02 174 1804 Review of Systems Review of Systems Constitutional: Reports: see HPI. EENTM: Denies: blurred vision, double vision, visual changes, eye pain. Cardiovascular: Reports: no symptoms. Respiratory: Reports: no symptoms. GI: Reports: no symptoms. Genitourinary: Reports: no symptoms. Neurological/Psychological: Reports: headache. Denies: no symptoms. Past History Travel History Traveled to [place] past 21 day No Medical History Blood Transfusion Hx: No Neurological: migraine EENT: NONE Cardiovascular: hypertension Respiratory: NONE Gastrointestinal: GERD, hiatal hernia Hepatic: NONE Renal: NONE Musculoskeletal: NONE Psychiatric: NONE Endocrine: hypothyroidism, obesity Blood Disorders: NONE Cancer(s): NONE [employer]/Reproductive: NONE Surgical History Surgical History: appendectomy, cholecystectomy, Psychosocial History Where Do You Live? Home Services at Home: None Smoking Status: Never Smoked ETOH Use: denies use Illicit Drug Use: denies illicit drug use Exam & Diagnostic Data Last 24 Hrs of Vital Signs/I&O Intake & Output 11/03 1600 11/03 0800 11/03 0000 Intake Total 120 Output Total 550 Balance -430 Intake, IV 0 Intake, Oral 120 Number 0 Bowel Movements Output, Urine 550 Patient 201 lb Weight Weight Bed scale Measurement Method Laboratory Tests 11/03 11/03 11/03 1030 0600 0426 Chemistry Sodium (137 - 145 mmol/L) Cancelled 142 Potassium (3.5 - 5.1 mmol/L) Cancelled 4.1 Chloride (98 - 107 mmol/L) Cancelled 105 Carbon Dioxide (22 - 30 mmol/L) Cancelled 27 Anion Gap (5 - 16) Cancelled 11 BUN (7 - 17 mg/dL) Cancelled 12 Creatinine (0.5 - 1.0 mg/dL) Cancelled 1.1 H Estimated GFR (>60 ml/min) 55 L Glucose (65 - 99 mg/dL) Cancelled 96 Calcium (8.4 - 10.2 mg/dL) Cancelled 9.2 Phosphorus (2.5 - 4.5 mg/dL) Cancelled 3.4 Magnesium (1.6 - 2.3 mg/dL) Cancelled 2.0 Total Bilirubin (0.2 - 1.3 mg/dL) Cancelled 0.5 AST (14 - 36 U/L) Cancelled 49 H ALT (9 - 52 U/L) Cancelled 87 H Troponin I (< 0.11 ng/ml) < 0.01 < 0.01 Albumin (3.5 - 5.0 g/dL) Cancelled 3.5 Hematology CBC w Diff Cancelled NO MAN DIFF REQ WBC (4.8 - 10.8 /CUMM) Cancelled 10.5 RBC (4.20 - 5.40 /CUMM) Cancelled 4.08 L Hgb (12.0 - 16.0 G/DL) Cancelled 12.4 Hct (37 - 47 %) Cancelled 37.1 MCV (81.0 - 99.0 FL) Cancelled 91.0 MCH (27.0 - 31.0 PG) Cancelled 30.5 MCHC (33.0 - 37.0 G/DL) Cancelled 33.5 RDW (11.5 - 14.5 %) Cancelled 14.9 H Plt Count (130 - 400 /CUMM) Cancelled 291 MPV (7.4 - 10.4 FL) Cancelled 6.6 L Gran % (42.2 - 75.2 %) 73.8 Lymphocytes % (20.5 - 51.1 %) 15.6 L Monocytes % (1.7 - 9.3 %) 6.6 Eosinophils % (0 - 5 %) 3.8 Basophils % (0.0 - 2.0 %) 0.2 Absolute Granulocytes (1.4 - 6.5 /CUMM) 7.8 H Absolute Lymphocytes (1.2 - 3.4 /CUMM) 1.6 Absolute Monocytes (0.10 - 0.60 /CUMM) 0.7 H Absolute Eosinophils (0.0 - 0.7 /CUMM) 0.4 Absolute Basophils (0.0 - 0.2 /CUMM) 0 11/02 11/02 1550 1421 Chemistry Sodium (137 - 145 mmol/L) 142 Potassium (3.5 - 5.1 mmol/L) 4.7 Chloride (98 - 107 mmol/L) 106 Carbon Dioxide (22 - 30 mmol/L) 26 Anion Gap (5 - 16) 10 BUN (7 - 17 mg/dL) 11 Creatinine (0.5 - 1.0 mg/dL) 1.1 H Estimated GFR (>60 ml/min) 55 L BUN/Creatinine Ratio (7 - 25 %) 10.0 Glucose (65 - 99 mg/dL) 89 Calcium (8.4 - 10.2 mg/dL) 9.5 Total Bilirubin (0.2 - 1.3 mg/dL) 0.5 AST (14 - 36 U/L) 48 H ALT (9 - 52 U/L) 86 H Alkaline Phosphatase (<127 U/L) 79 Lactate Dehydrogenase (313 - 618 U/L) 723 H Troponin I (< 0.11 ng/ml) < 0.01 Total Protein (6.3 - 8.2 g/dL) 6.8 Albumin (3.5 - 5.0 g/dL) 3.7 Globulin (1.9 - 4.2 gm/dL) 3.1 Albumin/Globulin Ratio (1.1 - 2.2 %) 1.2 Hematology CBC w Diff NO MAN DIFF REQ WBC (4.8 - 10.8 /CUMM) 9.6 RBC (4.20 - 5.40 /CUMM) 3.99 L Hgb (12.0 - 16.0 G/DL) 12.1 Hct (37 - 47 %) 36.3 L MCV (81.0 - 99.0 FL) 90.8 MCH (27.0 - 31.0 PG) 30.4 MCHC (33.0 - 37.0 G/DL) 33.4 RDW (11.5 - 14.5 %) 15.1 H Plt Count (130 - 400 /CUMM) 268 MPV (7.4 - 10.4 FL) 6.6 L Gran % (42.2 - 75.2 %) 72.2 Lymphocytes % (20.5 - 51.1 %) 15.9 L Monocytes % (1.7 - 9.3 %) 7.3 Eosinophils % (0 - 5 %) 4.4 Basophils % (0.0 - 2.0 %) 0.2 Absolute Granulocytes (1.4 - 6.5 /CUMM) 7.0 H Absolute Lymphocytes (1.2 - 3.4 /CUMM) 1.5 Absolute Monocytes (0.10 - 0.60 /CUMM) 0.7 H Absolute Eosinophils (0.0 - 0.7 /CUMM) 0.4 Absolute Basophils (0.0 - 0.2 /CUMM) 0 Urines Urine Color (YEL,AMB,STR) YEL Urine Clarity (CLEAR) CLEAR Urine pH (5.0 - 8.0) 6.0 Ur Specific Boyce (1.001 - 1.035) 1.010 Urine Protein (NEG,<30 MG/DL) TRACE H Urine Ketones (NEG) NEG Urine Nitrite (NEG) POS H Urine Bilirubin (NEG) NEG Urine Urobilinogen (0.1 - 1.0 EU/dl) 0.2 Ur Leukocyte Esterase (NEG) SMALL H Ur Microscopic SEDIMENT EXAMINED Urine RBC (0 - 5 /HPF) 1-3 Urine WBC (0 - 2 /HPF) 5-10 H Ur Epithelial Cells (NONE,FEW) RARE Urine Bacteria (NEG/NONE) MOD H Urine Hemoglobin (NEG) MOD H Urine Glucose (N MG/DL) NEG Vital Signs Date Time Temp Pulse Resp B/P B/P Pulse O2 O2 Flow FiO2 Mean Ox Delivery Rate 11/03 0949 Room Air Room Air 07/ 0800 98.1 78 20 152/84 99 Room Air 07/06 0626 70 160/90 07/06 0544 100 Room Air 07/06 0421 74 18 150/82 99 Room Air 07/06 0313 176/90 07/06 0231 98.1 71 20 170/96 07/06 0225 71 170/96 07/06 0211 98.1 74 20 182/116 07/06 0125 182/116 07/06 0008 74 20 162/86 97 07/05 2301 78 19 179/89 99 Room Air 07/05 2240 173/83 07/05 2238 173/83 07/05 2057 184/89 07/05 1953 88 20 209/110 100 07/05 1951 209/110 07/05 1804 174/99 07/05 1621 77 15 170/85 99 Room Air 07/05 1614 98.1 73 18 170/85 99 Room Air 07/05 1556 98.4 70 18 184/106 99 Room Air Intake & Output 07/06 1600 07/06 0800 07/06 0000 Intake Total 120 Output Total 550 Balance -430 Intake, IV 0 Intake, Oral 120 Number 0 Bowel Movements Output, Urine 550 Patient 201 lb Weight Weight Bed scale Measurement Method Physical Exam General Appearance: well developed/nourished, no apparent distress, alert, awake Head: atraumatic, normal appearance Eyes: Bilateral: normal appearance, other (sharp intact disk seen on fund). Cardiovascular: regular rate/rhythm Gastrointestinal: normal bowel sounds, soft, non-tender Extremities: normal inspection, normal range of motion, no edema Neurologic/Psych: awake, alert, oriented x 3 Skin: intact, normal color Last 48 Hrs of Labs/Azar: Laboratory Tests 11/03/17 1030: Troponin I < 0.01 11/03/17 0600: Sodium Cancelled, Potassium Cancelled, Chloride Cancelled, Carbon Dioxide Cancelled, Anion Gap Cancelled, BUN Cancelled, Creatinine Cancelled, Glucose Cancelled, Calcium Cancelled, Phosphorus Cancelled, Magnesium Cancelled, Total Bilirubin Cancelled, AST Cancelled, ALT Cancelled, Albumin Cancelled, CBC w Diff Cancelled, WBC Cancelled, RBC Cancelled, Hgb Cancelled, Hct Cancelled, MCV Cancelled, MCH Cancelled, MCHC Cancelled, RDW Cancelled, Plt Count Cancelled, MPV Cancelled 11/03/17 0426: Anion Gap 11, Estimated GFR 55 L, Glucose 96, Calcium 9.2, Phosphorus 3.4, Magnesium 2.0, Total Bilirubin 0.5, AST 49 H, ALT 87 H, Troponin I < 0.01, Albumin 3.5, CBC w Diff NO MAN DIFF REQ, RBC 4.08 L, MCV 91.0, MCH 30.5, MCHC 33.5, RDW 14.9 H, MPV 6.6 L, Gran % 73.8, Lymphocytes % 15.6 L, Monocytes % 6.6, Eosinophils % 3.8, Basophils % 0.2, Absolute Granulocytes 7.8 H, Absolute Lymphocytes 1.6, Absolute Monocytes 0.7 H, Absolute Eosinophils 0.4, Absolute Basophils 0 11/02/17 1550: Anion Gap 10, Estimated GFR 55 L, BUN/Creatinine Ratio 10.0, Glucose 89, Calcium 9.5, Total Bilirubin 0.5, AST 48 H, ALT 86 H, Alkaline Phosphatase 79, Lactate Dehydrogenase 723 H, Troponin I < 0.01, Total Protein 6.8, Albumin 3.7, Globulin 3.1, Albumin/Globulin Ratio 1.2, CBC w Diff NO MAN DIFF REQ, RBC 3.99 L, MCV 90.8, MCH 30.4, MCHC 33.4, RDW 15.1 H, MPV 6.6 L, Gran % 72.2, Lymphocytes % 15.9 L, Monocytes % 7.3, Eosinophils % 4.4, Basophils % 0.2, Absolute Granulocytes 7.0 H, Absolute Lymphocytes 1.5, Absolute Monocytes 0.7 H, Absolute Eosinophils 0.4, Absolute Basophils 0 11/02/17 1421: Urine Color YEL, Urine Clarity CLEAR, Urine pH 6.0, Ur Specific Boyce 1.010, Urine Protein TRACE H, Urine Ketones NEG, Urine Nitrite POS H, Urine Bilirubin NEG, Urine Urobilinogen 0.2, Ur Leukocyte Esterase SMALL H, Ur Microscopic SEDIMENT EXAMINED, Urine RBC 1-3, Urine WBC 5-10 H, Ur Epithelial Cells RARE, Urine Bacteria MOD H, Urine Hemoglobin MOD H, Urine Glucose NEG Diagnostic Data Other Results EXAMINATION: CT HEAD WITHOUT CONTRAST FINDINGS: There is no evidence of acute intracranial hemorrhage or territorial infarction. No abnormal mass effect or midline shift is seen. Boucher to white matter differentiation is well preserved. No extra-axial fluid collections are identified. The ventricles are normal in size. There is no abnormal attenuation within the brain parenchyma. The osseous structures and soft tissues are normal. The mastoid air cells and visualized portions of the paranasal sinuses are well aerated. IMPRESSION: No acute intracranial pathology. Assessment/Plan CRCU Impression/Plan: 42 y/o F pt with a h/o HTN and hypothyroidism s/p for chronic HTN with superimposed preeclampsia on 10/23 that came to the ED c/o headache and blurry vision. She was transferred to the ICU for management of her hypertensive urgency. ASSESSMENT AND PLAN Respiratory Pt is breathing comfortably on room air with 99% O2Sat; lungs are clear to auscultation bilaterally with normal breath sounds. No indication of lung pathology. Infection Pt has maintained afebrile since admission on 11/02, with no leukocytosis/ leukopenia or any other signs of infection. Cardiac Pt was transferred to the ICU for management of hypertensive urgency. Upon arrival, pt had BP of 184/106 going as high as 209/110. She was given labetalol 20mg IV pushes times 4 and labetalol drip achieving a decrease of her BP to 150s systolic. Cardiology was consulted and an echo was recommeded to exclude hypertensive cardiomyopathy. Serial EKGs and trops were negative. -continue labetalol drip -f/u echo -f/u cardio recommendations Hematological Patient is s/p , with a Hb of 12.4 and no leukocytosis (10.5 on latest am lab). No other abnormalities noted. Metabolic Her creatinine on arrival was 1.1 and has maintained since then. This could be related to both her stated lack of fluids leading up to admission as well as her high BPs. Her LFTs are elevated (AST 49, ALT 48) with a high LDH (723) though the significance of these findings is unclear. A percent of patients do experience HELLP syndrome , however her normal PLT count (291), normal bilirrubin (0.5), go against this diagnosis. Will continue to monitor to establish trend. -f/u Cr and LFTs Alimentary Patient tolerating PO well. Neurological Pt is pleasant, cooperating, alert and oriented to self, place and time. CT head on 11/03 showed no intracranial pathology. Problem List: 1. Hypertensive urgency 2. Status post section Consult Acknowledgment - Thank you for your consult request. Denise Stover MD 11/03/17 0926: Assessment/Plan CRCU Other Findings/Comments: I have personally seen and examined the patient and agree with the resident's assessment and plan as detailed above. Briefly, the patient is a 42-year-old female with a history of hypothyroidism, hypertension, and is . She recently underwent a on 10/23/2017. She had mildly elevated LFTs and a labile blood pressure so she was given a magnesium drip for 24 hours and discharged home on 10/28. The patient was admitted last night with headache and blurred vision and found to have a blood pressure of 184/106 on arrival. She was given multiple medications for control and was eventually transferred to the critical care unit on a labetalol drip for hypertensive urgency. The patient is currently awake and alert. She reports her headache symptoms have significantly improved. She has taken Tylenol overnight again with improvement. She has had no significant overnight events and her blood pressure is ranging in the 140s- 150s. Serial EKGs and troponins are negative. Urinalysis is pending. Cardiology and OB consults have been requested. Impression: 1. Hypertensive urgency, blood pressure better controlled on labetalol drip. 2. History of preeclampsia. 3. History of hypertension. 4. History of hypothyroidism. 5. , status post . Plan: Continue labetalol drip. Await cardiology consult. Continue to follow creatinine and LFTs. Follow-up OB recommendations. Continue DVT prophylaxis. Continue observation in the CRCU. Consult Acknowledgment - Thank you for your consult request.
--- NOTE | 2017-11-03 12:32 | Cons- Cardiology ---
General Information and HPI Consulting Request Date of Consult: 11/03/17 Requested By: Dawna Bronson MD Reason for Consult: Hypertensive urgency Source of Information: patient, old records History of Present Illness: This is a pleasant 42-year-old female with a past medical history of hypertension in the past which she tells me she was on medications for temporarily but blood pressure eventually improved and she was not recently taking chronic blood pressure medication. She recently gave to her third child via . She reports elevated blood pressure at that time. She then presented to [facility] with a chief complaint of headache and blurred vision without associated chest pain, palpitations, orthopnea, or paroxysmal nocturnal dyspnea. She did report some peripheral edema. She denies syncope or slurring of speech. During my examination she was feeling better and currently asymptomatic. Allergies/Medications Allergies: Coded Allergies: No Known Allergies (10/23/17) Home Med List: Labetalol HCl 300 MG TABLET 2 TAB PO BID high blood pressure Labetalol HCl 200 MG TABLET 200 MG PO BID HIGH BLOOD PRESSURE [Motrin] 800 MG PO Q6P PRN UTERINE CRAMPING Oxycodone HCl/Acetaminophen (Percocet 5-325 MG Tablet) 5 MG-325 MG TABLET 2 TAB PO Q4P PRN PAIN SCALE 7-10 (SEVERE) #48/Iron Cb&Glu/FA/B6 (Citranatal B-Calm Combo Pack) 20 MG IRON-1 MG-25 MG/25 MG TABLET.SEQ 1 CAP PO DAILY VITAMIN (Reported) Current Medications: Current Medications Sig/Krish Start time Last Medication Dose Route Stop Time Status Admin Acetaminophen 650 MG ONCE ONE 11/03 644 DC 11/03 PO 11/03 0546 42 Acetaminophen 1,000 MG ONCE ONE 11/02 1944 DC 11/02 N/A 1 UNIT IV 11/02 Acetaminophen 0 .STK-MED ONE 11/03 1939 DC IV Enalaprilat 1.25 MG STAT STA 11/03 2239 DC 11/02 IV 11/02 Enalaprilat 0 .STK-MED ONE 11/02 2232 DC IV Enalaprilat 1.25 MG STAT STA 11/02 222 CAN IV 11/03 2223 Heparin Sodium 5,000 UNIT Q8 11/03 06 AC 11/03 (Porcine) SC 0623 Hydralazine HCl 0 .STK-MED ONE 11/03 0227 DC .ROUTE Hydralazine HCl 10 MG ONCE ONE 11/03 0145 DC 11/03 IV 11/03 0146 0231 Hydralazine HCl 5 MG ONCE ONE 11/02 2245 DC 07/ IV 11/02 2246 2238 Hydrochlorothiazide 12.5 MG ONCE ONE 11/02 1915 DC 07/ PO 11/02 1916 1954 Ketorolac 30 MG ONCE ONE 11/02 2345 DC 07 Tromethamine IV 11/02 2346 2354 Ketorolac 0 .STK-MED ONE 11/02 2337 DC Tromethamine .ROUTE Labetalol HCl 400 MG TID 11/03 1215 UNVr PO Labetalol HCl 400 MG Q3H 11/03 0815 AC Dextrose/Water 400 ML IV 11/03 1400 Labetalol HCl 20 MG ONCE ONE 11/03 0500 DC 11/03 IV 11/03 0501 0626 Labetalol HCl 200 MG Q24H 11/03 0415 DC 11/03 Dextrose/Water 200 ML IV 0627 Labetalol HCl 0 .STK-MED ONE 11/03 0149 DC IV Labetalol HCl 20 MG ONCE ONE 11/03 0145 DC 11/03 IV 11/03 0146 0211 Labetalol HCl 20 MG ONCE ONE 11/02 2230 DC 07/ IV 11/02 2231 2238 Labetalol HCl 20 MG ONCE ONE 11/02 1945 DC 07/ IV 11/02 194 1951 Labetalol HCl 0 .STK-MED ONE 11/02 1940 DC IV Labetalol HCl 200 MG ONCE ONE 11/02 1745 DC 07/ PO 11/02 1746 1804 Review of Systems Review of Systems: Review of systems as per HPI. The remainder of a 10 point review of systems was reviewed and was otherwise negative. 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 Home Services at Home: None Smoking Status: Never Smoked ETOH Use: denies use Illicit Drug Use: denies illicit drug use Exam & Diagnostic Data Vital Signs and I&O Vital Signs Date Time Temp Pulse Resp B/P B/P Pulse O2 O2 Flow FiO2 Mean Ox Delivery Rate 11/03 0949 Room Air Room Air 11/03 0800 98.1 78 20 152/84 99 Room Air 07/06 0626 70 160/90 07/06 0544 100 Room Air / 0421 74 18 150/82 99 Room Air /06 0313 176/90 07/06 0231 98.1 71 20 170/96 07/06 0225 71 170/96 07/06 0211 98.1 74 20 182/116 07/06 0125 182/116 07/06 0008 74 20 162/86 97 07/05 2301 78 19 179/89 99 Room Air 07/05 2240 173/83 07/05 2238 173/83 /05 2057 184/89 /05 1953 88 20 209/110 100 07/05 1951 209/110 07/05 1804 174/99 07/05 1621 77 15 170/85 99 Room Air 07/05 1614 98.1 73 18 170/85 99 Room Air 07/05 1556 98.4 70 18 184/106 99 Room Air Intake & Output 11/03 1600 / 0800 / 0000 07/ 1600 / 0800 07/ 0000 Intake Total 120 Output Total 550 Balance -430 Intake, IV 0 Intake, Oral 120 Number 0 Bowel Movements Output, Urine 550 Patient 201 lb 203 lb Weight Weight Bed scale Measurement Method Physical Exam: General: no apparent distress. Alert. Eyes: No obvious scleral icterus. HEENT: No jugular venous distention or abnormal jugular venous pulsations. Cardiovascular: Normal intensity S1/S2. PMI not grossly displaced. Respiratory: Lungs clear to auscultation bilaterally. Abdomen: Soft, nontender with no guarding or rebound tenderness. Musculoskeletal: No clubbing or cyanosis noted Skin: warm Neurologic: No gross focal deficits noted. Lymph: No gross lymphadenopathy. Labs/Azar Results: Laboratory Tests 11/03 11/03 11/03 1030 0600 0426 Chemistry Sodium (137 - 145 mmol/L) Cancelled 142 Potassium (3.5 - 5.1 mmol/L) Cancelled 4.1 Chloride (98 - 107 mmol/L) Cancelled 105 Carbon Dioxide (22 - 30 mmol/L) Cancelled 27 Anion Gap (5 - 16) Cancelled 11 BUN (7 - 17 mg/dL) Cancelled 12 Creatinine (0.5 - 1.0 mg/dL) Cancelled 1.1 H Estimated GFR (>60 ml/min) 55 L Glucose (65 - 99 mg/dL) Cancelled 96 Calcium (8.4 - 10.2 mg/dL) Cancelled 9.2 Phosphorus (2.5 - 4.5 mg/dL) Cancelled 3.4 Magnesium (1.6 - 2.3 mg/dL) Cancelled 2.0 Total Bilirubin (0.2 - 1.3 mg/dL) Cancelled 0.5 AST (14 - 36 U/L) Cancelled 49 H ALT (9 - 52 U/L) Cancelled 87 H Troponin I (< 0.11 ng/ml) < 0.01 < 0.01 Albumin (3.5 - 5.0 g/dL) Cancelled 3.5 Hematology CBC w Diff Cancelled NO MAN DIFF REQ WBC (4.8 - 10.8 /CUMM) Cancelled 10.5 RBC (4.20 - 5.40 /CUMM) Cancelled 4.08 L Hgb (12.0 - 16.0 G/DL) Cancelled 12.4 Hct (37 - 47 %) Cancelled 37.1 MCV (81.0 - 99.0 FL) Cancelled 91.0 MCH (27.0 - 31.0 PG) Cancelled 30.5 MCHC (33.0 - 37.0 G/DL) Cancelled 33.5 RDW (11.5 - 14.5 %) Cancelled 14.9 H Plt Count (130 - 400 /CUMM) Cancelled 291 MPV (7.4 - 10.4 FL) Cancelled 6.6 L Gran % (42.2 - 75.2 %) 73.8 Lymphocytes % (20.5 - 51.1 %) 15.6 L Monocytes % (1.7 - 9.3 %) 6.6 Eosinophils % (0 - 5 %) 3.8 Basophils % (0.0 - 2.0 %) 0.2 Absolute Granulocytes (1.4 - 6.5 /CUMM) 7.8 H Absolute Lymphocytes (1.2 - 3.4 /CUMM) 1.6 Absolute Monocytes (0.10 - 0.60 /CUMM) 0.7 H Absolute Eosinophils (0.0 - 0.7 /CUMM) 0.4 Absolute Basophils (0.0 - 0.2 /CUMM) 0 11/02 11/02 1550 1421 Chemistry Sodium (137 - 145 mmol/L) 142 Potassium (3.5 - 5.1 mmol/L) 4.7 Chloride (98 - 107 mmol/L) 106 Carbon Dioxide (22 - 30 mmol/L) 26 Anion Gap (5 - 16) 10 BUN (7 - 17 mg/dL) 11 Creatinine (0.5 - 1.0 mg/dL) 1.1 H Estimated GFR (>60 ml/min) 55 L BUN/Creatinine Ratio (7 - 25 %) 10.0 Glucose (65 - 99 mg/dL) 89 Calcium (8.4 - 10.2 mg/dL) 9.5 Total Bilirubin (0.2 - 1.3 mg/dL) 0.5 AST (14 - 36 U/L) 48 H ALT (9 - 52 U/L) 86 H Alkaline Phosphatase (<127 U/L) 79 Lactate Dehydrogenase (313 - 618 U/L) 723 H Troponin I (< 0.11 ng/ml) < 0.01 Total Protein (6.3 - 8.2 g/dL) 6.8 Albumin (3.5 - 5.0 g/dL) 3.7 Globulin (1.9 - 4.2 gm/dL) 3.1 Albumin/Globulin Ratio (1.1 - 2.2 %) 1.2 Hematology CBC w Diff NO MAN DIFF REQ WBC (4.8 - 10.8 /CUMM) 9.6 RBC (4.20 - 5.40 /CUMM) 3.99 L Hgb (12.0 - 16.0 G/DL) 12.1 Hct (37 - 47 %) 36.3 L MCV (81.0 - 99.0 FL) 90.8 MCH (27.0 - 31.0 PG) 30.4 MCHC (33.0 - 37.0 G/DL) 33.4 RDW (11.5 - 14.5 %) 15.1 H Plt Count (130 - 400 /CUMM) 268 MPV (7.4 - 10.4 FL) 6.6 L Gran % (42.2 - 75.2 %) 72.2 Lymphocytes % (20.5 - 51.1 %) 15.9 L Monocytes % (1.7 - 9.3 %) 7.3 Eosinophils % (0 - 5 %) 4.4 Basophils % (0.0 - 2.0 %) 0.2 Absolute Granulocytes (1.4 - 6.5 /CUMM) 7.0 H Absolute Lymphocytes (1.2 - 3.4 /CUMM) 1.5 Absolute Monocytes (0.10 - 0.60 /CUMM) 0.7 H Absolute Eosinophils (0.0 - 0.7 /CUMM) 0.4 Absolute Basophils (0.0 - 0.2 /CUMM) 0 Urines Urine Color (YEL,AMB,STR) YEL Urine Clarity (CLEAR) CLEAR Urine pH (5.0 - 8.0) 6.0 Ur Specific [place] (1.001 - 1.035) 1.010 Urine Protein (NEG,<30 MG/DL) TRACE H Urine Ketones (NEG) NEG Urine Nitrite (NEG) POS H Urine Bilirubin (NEG) NEG Urine Urobilinogen (0.1 - 1.0 EU/dl) 0.2 Ur Leukocyte Esterase (NEG) SMALL H Ur Microscopic SEDIMENT EXAMINED Urine RBC (0 - 5 /HPF) 1-3 Urine WBC (0 - 2 /HPF) 5-10 H Ur Epithelial Cells (NONE,FEW) RARE Urine Bacteria (NEG/NONE) MOD H Urine Hemoglobin (NEG) MOD H Urine Glucose (N MG/DL) NEG Diagnostic Data EKG Results Tracing was personally reviewed and shows sinus rhythm at 74 bpm with no infarct pattern CXR Results No CHF on x-ray from October [address] shows no acute pathology Telemetry tracings were personally reviewed and shows sinus rhythm Assessment/Plan Assessment/Plan 1. Hypertensive urgency requiring intravenous medication 2. History of preeclampsia 3. History of hypertension 4. Status post recent The patient's blood pressure is improving and fortunately she shows no evidence of severe end organ damage from the elevated blood pressure. Can start oral labetalol and begin to wean off the labetalol drip as blood pressure tolerates. Maintain on telemetry for now. Recommend obtaining an echocardiogram to exclude any evidence of hypertensive cardiomyopathy. Milton Duque MD [facility] Consult Acknowledgment - Thank you for your consult request.
[2017-11-03 16:00] VITALS: BP 114/74
--- NOTE | 2017-11-03 16:04 | Patient Discharge Instructions ---
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 Diet Continue normal diet: Yes Activity Full Activity/No Limits: Yes Acute Coronary Syndrome Inclusion Criteria At DC or during hospital stay patient has or had the following: ACS DIAGNOSIS No Discharge Core Measures Meds if any: Prescribed or Continued at Discharge Meds if any: NOT Prescribed or Continued at Discharge Congestive Heart Failure Inclusion Criteria At DC or during hospital stay patient has or had the following: CHF DIAGNOSIS No Discharge Core Measures Meds if any: Prescribed or Continued at Discharge Meds if any: NOT Prescribed or Continued at Discharge Cerebrovascular accident Inclusion Criteria At DC or during hospital stay patient has or had the following: CVA/TIA Diagnosis No Discharge Core Measures Meds if any: Prescribed or Continued at Discharge Meds if any: NOT Prescribed or Continued at Discharge Venous thromboembolism Inclusion Criteria VTE Diagnosis No VTE Type NONE VTE Confirmed by (Test) NONE Discharge Core Measures - Per Current guidelines, there needs to be overlap - treatment for the first 5 days of Warfarin therapy. - If discharged on Warfarin prior to 5 days of - overlap therapy, the patient will need to be - assessed for post discharge needs including - *Post discharge parental anticoagulation - *Warfarin and/or parental anticoagulation education - *Follow up date to check INR post discharge At least 5 days overlap therapy as Inpatient No Meds if any: Prescribed or Continued at Discharge Note: Overlap Therapy is Warfarin and Anticoagulant Meds if any: NOT Prescribed or Continued at Discharge
[2017-11-04] VITALS: BP 132/86
--- NOTE | 2017-11-04 06:21 | PN- OBGYN ---
Surgical Brief Attending Note Brief Attending Note: late entry pt seen by me last night. feeling much better. denies nguyen / visual changes / ruq / epig pain. mild cramping w/ br pumping now taking po antihypertensives. had echo - results pending 162 / 80 nad abd soft nt ff inc c/d/i - steris removed ext nt no ed -42yo P3 s/p rpt c/s, h/o CHTN and delivered at 36wks for pec w/ sf w/ uncomplicated hospital course, readmitted one wk later w/ hypertensive emergency , slow clinical improvement, s/p labetalol drip -cont current mgmt -CCU mgmt appreciated
[2017-11-04 08:00] VITALS: BP 140/80
--- NOTE | 2017-11-04 08:38 | PN- Resident CRCU ---
Subjective HPI/CRCU Issues: 42 y/o F pt with a h/o HTN and hypothyroidism s/p for chronic HTN with superimposed preeclampsia on 10/23 that came to the ED c/o headache and blurry vision. She was transferred to the ICU for management of her hypertensive urgency. 24 Hour Events: No complains overnight. Pt states she slept well with no more headache. Objective Vital Signs & I&O Last 8 Hrs of Vitals and I&O: Laboratory Tests 11/04 11/03 0417 1030 Chemistry Sodium (137 - 145 mmol/L) 141 Potassium (3.5 - 5.1 mmol/L) 3.6 Chloride (98 - 107 mmol/L) 107 Carbon Dioxide (22 - 30 mmol/L) 24 Anion Gap (5 - 16) 9 BUN (7 - 17 mg/dL) 13 Creatinine (0.5 - 1.0 mg/dL) 1.2 H Estimated GFR (>60 ml/min) 50 L Glucose (65 - 99 mg/dL) 82 Calcium (8.4 - 10.2 mg/dL) 8.8 Phosphorus (2.5 - 4.5 mg/dL) 4.1 Magnesium (1.6 - 2.3 mg/dL) 1.8 Total Bilirubin (0.2 - 1.3 mg/dL) 0.4 AST (14 - 36 U/L) 30 ALT (9 - 52 U/L) 71 H Troponin I (< 0.11 ng/ml) < 0.01 Albumin (3.5 - 5.0 g/dL) 3.1 L Exam General Appearance: well developed/nourished, no apparent distress, alert, awake Head: atraumatic, normal appearance Neck: normal inspection, supple Respiratory: normal breath sounds, chest non-tender, no respiratory distress Cardiovascular: regular rate/rhythm Gastrointestinal: normal bowel sounds, soft, non-tender, no organomegaly Extremities: normal inspection Current Medications: Current Medications Sig/Krish Start time Last Medication Dose Route Stop Time Status Admin Acetaminophen 650 MG .STK-MED ONE 11/03 1415 DC PO 11/03 1416 Acetaminophen/ 2 CAP Q8P PRN 11/03 1400 AC 11/03 Aspirin/Caffeine PO 1727 Captopril 12.5 MG ONE ONE 11/03 1800 DC 11/03 PO 11/03 1801 1815 Heparin Sodium 5,000 UNIT Q8 11/03 0600 AC 11/03 (Porcine) SC 2055 Labetalol HCl 400 MG Q3H 11/03 1515 DC Dextrose/Water 400 ML IV Labetalol HCl 400 MG TID 11/03 1400 AC 11/04 PO 0813 Labetalol HCl 400 MG Q3H 11/03 0815 DC Dextrose/Water 400 ML IV 11/03 1400 Oxycodone/ 1 TAB ONCE ONE 11/03 2099 DC 11/03 Acetaminophen PO 11/03 CT Scan Findings: EXAMINATION: CT HEAD WITHOUT CONTRAST FINDINGS: There is no evidence of acute intracranial hemorrhage or territorial infarction. No abnormal mass effect or midline shift is seen. Boucher to white matter differentiation is well preserved. No extra-axial fluid collections are identified. The ventricles are normal in size. There is no abnormal attenuation within the brain parenchyma. The osseous structures and soft tissues are normal. The mastoid air cells and visualized portions of the paranasal sinuses are well aerated. IMPRESSION: No acute intracranial pathology. Impression/Plan Impression/Problem List Impression: 42 y/o F pt with a h/o HTN and hypothyroidism s/p for chronic HTN with superimposed preeclampsia on 10/23 that came to the ED c/o headache and blurry vision. She was transferred to the ICU for management of her hypertensive urgency. ASSESSMENT AND PLAN VS: 132/86 // HR: 63 // RR: 17 99% O2 Sat Room Air // T 97.4 Respiratory Pt is breathing comfortably on room air with 98% O2Sat; lungs are clear to auscultation bilaterally with normal breath sounds. No indication of lung pathology. Infection Pt has maintained afebrile since admission on 11/02, with no leukocytosis/ leukopenia or any other signs of infection. Cardiac Pt was transferred to the ICU for management of hypertensive urgency. Upon arrival, pt had BP of 184/106 going as high as 209/110. She was given labetalol 20mg IV pushes times 4 and labetalol drip achieving a decrease of her BP to 150s systolic. She was transitioned to labetalol 400 mg PO TID, and now to labetalol 600 mg BID. Cardiology was consulted and an echo was recommeded to exclude hypertensive cardiomyopathy. Serial EKGs and trops were negative. -Labetalol 600mg BID -f/u echo -f/u cardio recommendations Hematological Patient is s/p , with a Hb of 12.4 and no leukocytosis (10.5 on latest am lab - 11/03). No other abnormalities noted. Metabolic Her creatinine on arrival was 1.1, now 1.2. This could be related to both her stated lack of fluids leading up to admission as well as her high BPs. Her AST has normalized (30) but his ALT remaines elevated (48->71) with a high LDH on admit (723) though the significance of these findings is unclear. A percent of patients do experience HELLP syndrome , however her normal PLT count ( 291), normal bilirrubin (0.4), go against this diagnosis. Will continue to monitor to establish trend. -f/u Cr and LFTs Alimentary Patient tolerating PO well. Neurological Pt is pleasant, cooperating, alert and oriented to self, place and time. No changes in her mental status since admission. No complains of headache overnight. CT head on 11/03 showed no intracranial pathology. Problem List: 1. Hypertensive urgency 2. Status post section Pain Ratin Tomorrow's Labs & Rationales: BEP Plan DVT/Prophylaxis: mechanical, pharmacological
--- NOTE | 2017-11-04 10:06 | PN- CRCU ---
Subjective HPI/Critical Care Issues: Feels much better No significant headache or visual changes No significant pain Blood pressure seems to be much improved Off labetalol drip Objective Current Medications: Current Medications Sig/Krish Start time Last Medication Dose Route Stop Time Status Admin Acetaminophen 650 MG .STK-MED ONE 11/03 1415 DC PO 11/03 1416 Acetaminophen/ 2 CAP Q8P PRN 11/03 1400 AC 11/03 Aspirin/Caffeine PO 1727 Captopril 12.5 MG ONE ONE 11/03 1800 DC 11/03 PO 11/03 1801 1815 Heparin Sodium 5,000 UNIT Q8 11/03 0600 AC 11/03 (Porcine) SC 2055 Labetalol HCl 400 MG Q3H 11/03 1515 DC Dextrose/Water 400 ML IV Labetalol HCl 400 MG TID 11/03 1400 AC 11/04 PO 0813 Labetalol HCl 400 MG Q3H 11/03 0815 DC Dextrose/Water 400 ML IV 11/03 1400 Oxycodone/ 1 TAB ONCE ONE 11/03 2100 DC 11/03 Acetaminophen PO 11/03 Vital Signs & I&O Last 24 Hrs of Vitals and I&O: Vital Signs Date Time Temp Pulse Resp B/P B/P Pulse O2 O2 Flow FiO2 Mean Ox Delivery Rate 11/04 0400 98 Room Air 11/04 0000 98 Room Air 11/04 0000 97.4 63 17 132/86 98 Room Air 11/03 2056 65 23 168/92 11/03 2000 99 Room Air 11/03 1600 98.3 81 20 114/74 100 Room Air Intake & Output 11/04 1600 11/04 0800 11/04 0000 Intake Total 240 840 Output Total 500 350 Balance -260 490 Intake, IV 0 Intake, Oral 240 840 Number 0 1 Bowel Movements Output, Urine 500 350 Laboratory Tests 11/04 11/03 11/03 0417 1030 0600 Chemistry Sodium (137 - 145 mmol/L) 141 Cancelled Potassium (3.5 - 5.1 mmol/L) 3.6 Cancelled Chloride (98 - 107 mmol/L) 107 Cancelled Carbon Dioxide (22 - 30 mmol/L) 24 Cancelled Anion Gap (5 - 16) 9 Cancelled BUN (7 - 17 mg/dL) 13 Cancelled Creatinine (0.5 - 1.0 mg/dL) 1.2 H Cancelled Estimated GFR (>60 ml/min) 50 L Glucose (65 - 99 mg/dL) 82 Cancelled Calcium (8.4 - 10.2 mg/dL) 8.8 Cancelled Phosphorus (2.5 - 4.5 mg/dL) 4.1 Cancelled Magnesium (1.6 - 2.3 mg/dL) 1.8 Cancelled Total Bilirubin (0.2 - 1.3 mg/dL) 0.4 Cancelled AST (14 - 36 U/L) 30 Cancelled ALT (9 - 52 U/L) 71 H Cancelled Troponin I (< 0.11 ng/ml) < 0.01 Albumin (3.5 - 5.0 g/dL) 3.1 L Cancelled Hematology CBC w Diff Cancelled WBC Cancelled RBC Cancelled Hgb Cancelled Hct Cancelled MCV Cancelled MCH Cancelled MCHC Cancelled RDW Cancelled Plt Count Cancelled MPV Cancelled 11/03 11/02 0426 1550 Chemistry Sodium (137 - 145 mmol/L) 142 142 Potassium (3.5 - 5.1 mmol/L) 4.1 4.7 Chloride (98 - 107 mmol/L) 105 106 Carbon Dioxide (22 - 30 mmol/L) 27 26 Anion Gap (5 - 16) 11 10 BUN (7 - 17 mg/dL) 12 11 Creatinine (0.5 - 1.0 mg/dL) 1.1 H 1.1 H Estimated GFR (>60 ml/min) 55 L 55 L BUN/Creatinine Ratio (7 - 25 %) 10.0 Glucose (65 - 99 mg/dL) 96 89 Calcium (8.4 - 10.2 mg/dL) 9.2 9.5 Phosphorus (2.5 - 4.5 mg/dL) 3.4 Magnesium (1.6 - 2.3 mg/dL) 2.0 Total Bilirubin (0.2 - 1.3 mg/dL) 0.5 0.5 AST (14 - 36 U/L) 49 H 48 H ALT (9 - 52 U/L) 87 H 86 H Alkaline Phosphatase (<127 U/L) 79 Lactate Dehydrogenase (313 - 618 U/L) 723 H Troponin I (< 0.11 ng/ml) < 0.01 < 0.01 Total Protein (6.3 - 8.2 g/dL) 6.8 Albumin (3.5 - 5.0 g/dL) 3.5 3.7 Globulin (1.9 - 4.2 gm/dL) 3.1 Albumin/Globulin Ratio (1.1 - 2.2 %) 1.2 Hematology CBC w Diff NO MAN DIFF REQ NO MAN DIFF REQ WBC (4.8 - 10.8 /CUMM) 10.5 9.6 RBC (4.20 - 5.40 /CUMM) 4.08 L 3.99 L Hgb (12.0 - 16.0 G/DL) 12.4 12.1 Hct (37 - 47 %) 37.1 36.3 L MCV (81.0 - 99.0 FL) 91.0 90.8 MCH (27.0 - 31.0 PG) 30.5 30.4 MCHC (33.0 - 37.0 G/DL) 33.5 33.4 RDW (11.5 - 14.5 %) 14.9 H 15.1 H Plt Count (130 - 400 /CUMM) 291 268 MPV (7.4 - 10.4 FL) 6.6 L 6.6 L Gran % (42.2 - 75.2 %) 73.8 72.2 Lymphocytes % (20.5 - 51.1 %) 15.6 L 15.9 L Monocytes % (1.7 - 9.3 %) 6.6 7.3 Eosinophils % (0 - 5 %) 3.8 4.4 Basophils % (0.0 - 2.0 %) 0.2 0.2 Absolute Granulocytes (1.4 - 6.5 /CUMM) 7.8 H 7.0 H Absolute Lymphocytes (1.2 - 3.4 /CUMM) 1.6 1.5 Absolute Monocytes (0.10 - 0.60 /CUMM) 0.7 H 0.7 H Absolute Eosinophils (0.0 - 0.7 /CUMM) 0.4 0.4 Absolute Basophils (0.0 - 0.2 /CUMM) 0 0 07/05 1421 Urines Urine Color (YEL,AMB,STR) YEL Urine Clarity (CLEAR) CLEAR Urine pH (5.0 - 8.0) 6.0 Ur Specific [place] (1.001 - 1.035) 1.010 Urine Protein (NEG,<30 MG/DL) TRACE H Urine Ketones (NEG) NEG Urine Nitrite (NEG) POS H Urine Bilirubin (NEG) NEG Urine Urobilinogen (0.1 - 1.0 EU/dl) 0.2 Ur Leukocyte Esterase (NEG) SMALL H Ur Microscopic SEDIMENT EXAMINED Urine RBC (0 - 5 /HPF) 1-3 Urine WBC (0 - 2 /HPF) 5-10 H Ur Epithelial Cells (NONE,FEW) RARE Urine Bacteria (NEG/NONE) MOD H Urine Hemoglobin (NEG) MOD H Urine Glucose (N MG/DL) NEG Microbiology Date/Time Procedure - Status Source Growth 11/03 529 Surveillance Culture - COMP UPPER RESP Impression/Plan Impression/Plan Impression/Plan: General: no apparent distress. Alert. Eyes: No obvious scleral icterus. HEENT: No jugular venous distention or abnormal jugular venous pulsations. Cardiovascular: Normal intensity S1/S2. PMI not grossly displaced. Respiratory: Lungs clear to auscultation bilaterally. Abdomen: Soft, nontender with no guarding or rebound tenderness. Musculoskeletal: No clubbing or cyanosis noted Skin: warm Neurologic: No gross focal deficits noted. Lymph: No gross lymphadenopathy. Blood work reviewed creatinine 1.2 baseline appears to be 0.8 mag level I.8 IMPRESSION This is a lady with recent with history of preeclampsia and hypertension now has hypertensive urgency requiring intravenous labetalol now much better. History of preeclampsia which is stable Mild increase in creatinine rule out acute kidney injury due to hypertension versus ALBERT inhibitor use recently causing elevated creatinine RECOMMENDATION Continued by mouth low Continue to watch in the hospital Watch creatinine Avoid ALBERT inhibitor, maintain telemetry cardiology to follow Echocardiogram
--- NOTE | 2017-11-04 14:34 | PN- Cardiology ---
Subjective Subjective: * Patient feels much improved without headache, blurred vision, chest discomfort or shortness of breath. * sinus rhythm * much improved blood pressure Objective Vital Signs and I&Os Vital Signs Date Time Temp Pulse Resp B/P B/P Pulse O2 O2 Flow FiO2 Mean Ox Delivery Rate 11/05 799 97.8 64 23 140/80 97 Room Air 11/04 0400 98 Room Air 11/04 0000 98 Room Air 11/04 0000 97.4 63 17 132/86 98 Room Air 11/03 2056 65 23 168/92 11/03 2000 99 Room Air 11/03 1600 98.3 81 20 114/74 100 Room Air Intake & Output 11/04 1600 11/04 0811/04 0000 11/03 1600 11/03 0800 11/03 0000 Intake Total 086 629 7209 120 Output Total 500 350 875 550 Balance -260 490 865 -430 Intake, IV 0 540 0 Intake, Oral 023 492 8570 120 Number 0 1 0 0 Bowel Movements Output, Other 175 Output, Urine 500 350 700 550 Patient 201 lb Weight Weight Bed scale Measurement Method Physical Exam: General: WD/obese female in NAD; alert and oriented x 3 HEENT: NC/AT, PERRL, EOMI Neck: no JVD Heart: RRR Lungs: clear bilaterally Extremities: no edema Assessment/Plan Assessment/Plan * This patient is noted to have a dramatic improvement in her blood pressure although it is not quite in the ideal range which is fine for today. She is being transitioned to oral medications and will be reassessed for her need for additional medications tomorrow. * Will review echo. Continue telemetry? Yes
[2017-11-04 16:00] VITALS: BP 136/70
--- NOTE | 2017-11-04 19:03 | ECHOCARDIOGRAM REPORT ---
BRANDEN CHAN Age: 42 : 1975 Gender: F Exam Date: 11/03/2017 19:57 Exam Location: [facility] Ht (in): 61 Wt (lb): 203 BSA: 2.04 BP: 152 / 84 Ordering Physician: Alberto Martel MD Referring Physician: Salinas Duque M.D. Technologist: Douglas Lim [facility] Room Number: 110-01 Indications: HYPERTENSION Rhythm: Sinus Technical Quality: good FINDINGS Left Ventricle Normal left ventricular size, wall thickness and systolic function with no obvious regional wall motion abnormalities. Normal left ventricular diastolic filling pattern for age. The ejection fraction is visually estimated at 60%. Right Ventricle The right ventricle is normal in size and function. Right Atrium The right atrium is normal in size. Left Atrium The left atrium is midly enlarged. The interatrial septum is intact. Mitral Valve The mitral valve is normal in structure and function. There is mild mitral regurgitation. Aortic Valve Structurally normal aortic valve without significant sclerosis or stenosis. There is trace to mild aortic regurgitation. Tricuspid Valve The tricuspid valve is normal in structure and function. There is mild tricuspid regurgitation. Pulmonary artery systolic pressure is normal. Pulmonic Valve Structurally normal pulmonic valve. There is trace pulmonic regurgitation. Pericardium Normal pericardium without effusion. No pleural effusion. Great Vessels Normal aortic root dimension. The aortic arch and great vessels are well seen and are normal. CONCLUSIONS 1. Normal EF of 60%. 2. Mild left atrial enlargement. 3. Mild mitral regurgitation. 4. Mild tricuspid regurgitation. 5. Trace to mild aortic regurgitation. 6. Trace pulmonic regurgitation. Ho Juarez M.D. (Electronically Signed) Final Date: 04 November 2017 19:02 MEASUREMENTS (Male / Female) Normal Values 2D ECHO LV Diastolic Diameter PLAX 4.9 cm 4.2 - 5.9 / 3.9 - 5.3 cm LV Systolic Diameter PLAX 3.3 cm 2.1 - 4.0 cm LV Fractional Shortening PLAX 32.7 % 25 - 46 % LV Ejection Fraction 2D Teich 60.9 % IVS Diastolic Thickness 1.0 cm LVPW Diastolic Thickness 0.9 cm LV Relative Wall Thickness 0.4 RV Internal Dim ED PLAX 2.6 cm 1.9 - 3.8 cm LVOT Diameter 2.1 cm Aortic Root Diameter 3.0 cm LA Systolic Diameter LX 4.4 cm 3.0 - 4.0 / 2.7 - 3.8 cm LA Volume 86.0 cm 18 - 58 / 22 - 52 cm Ascending Aorta Diameter 2.8 cm DOPPLER AV Peak Velocity 145.0 cm/s AV Peak Gradient 8.4 mmHg AV Mean Velocity 106.0 cm/s AV Mean Gradient 5.0 mmHg AV Velocity Time Integral 30.3 cm LVOT Peak Velocity 80.1 cm/s LVOT Peak Gradient 2.6 mmHg LVOT Mean Velocity 60.8 cm/s LVOT Mean Gradient 2.0 mmHg LVOT Velocity Time Integral 19.3 cm LVOT Stroke Volume 66.8 cm AV Area Cont Eq vti 2.2 cm AV Area Cont Eq pk 1.9 cm MV Peak Velocity 99.7 cm/s MV Peak Gradient 4.0 mmHg MV Mean Velocity 77.4 cm/s MV Mean Gradient 2.0 mmHg Mitral E Point Velocity 110.0 cm/s Mitral A Point Velocity 53.1 cm/s Mitral E to A Ratio 2.1 MV PHT Velocity 107.0 cm/s MV Deceleration Crane 321.0 cm/s MV Pressure Half Time 100.0 ms MV Area PHT 2.2 cm MV Deceleration Time 158.0 ms TV Peak Velocity 281.5 cm/s TV Peak E Velocity 58.1 cm/s TV Peak A Velocity 40.2 cm/s TV E to A Ratio 1.4 Right Atrial Pressure 5.0 mmHg PV Peak Velocity 105.0 cm/s PV Peak Gradient 4.4 mmHg PV Mean Velocity 78.0 cm/s PV Mean Gradient 3.0 mmHg PV Velocity Time Integral 25.5 cm LV E' Lateral Velocity 9.8 cm/s Mitral E to LV E' Lateral Ratio 11.2 LV E' Septal Velocity 9.5 cm/s Mitral E to LV E' Septal Ratio 11.6
[2017-11-04 22:13] VITALS: BP 152/92
[2017-11-05] VITALS (8 sets, daily range): BP systolic 140–170; BP diastolic 80–98
--- NOTE | 2017-11-05 08:20 | PN- Resident CRCU ---
Subjective HPI/CRCU Issues: Hypertesnisve urgency Mild creatinine increase Hx of Preeclampsia 24 Hour Events: Seen and examined at [facility]. She is seated comfortably and denies any ehadaches ,vision changes, chest pain or palpitations. Her BP yesterday averaged in 150s Systolic, her labetalol was changed to 600mg bid. Objective Vital Signs & I&O Last 8 Hrs of Vitals and I&O: Vital Signs Date Time Temp Pulse Resp B/P B/P Pulse O2 O2 Flow FiO2 Mean Ox Delivery Rate 11/05 0839 152/90 11/05 06 158/98 11/05 0000 99 Room Air 11/04 2213 98.2 66 18 152/92 99 Room Air 11/04 2117 98.2 71 22 160/98 11/04 1600 98.9 65 20 136/70 99 Room Air Intake & Output 11/05 1600 11/05 0800 11/05 0000 Intake Total 400 Output Total 450 300 Balance -450 100 Intake, Oral 400 Number 0 Bowel Movements Output, Urine 450 300 Laboratory Tests 11/05 0540 Chemistry Sodium (137 - 145 mmol/L) 140 Potassium (3.5 - 5.1 mmol/L) 4.0 Chloride (98 - 107 mmol/L) 107 Carbon Dioxide (22 - 30 mmol/L) 23 Anion Gap (5 - 16) 10 BUN (7 - 17 mg/dL) 14 Creatinine (0.5 - 1.0 mg/dL) 1.2 H Estimated GFR (>60 ml/min) 50 L BUN/Creatinine Ratio (7 - 25 %) 11.7 Exam General Appearance: well developed/nourished, no apparent distress, alert, awake Neck: normal inspection, supple Respiratory: normal breath sounds, chest non-tender, no respiratory distress, lungs clear Cardiovascular: regular rate/rhythm Gastrointestinal: normal bowel sounds, soft Extremities: no edema Current Medications: Current Medications Sig/Krish Start time Last Medication Dose Route Stop Time Status Admin Acetaminophen/ 2 CAP Q8P PRN 11/03 1400 AC 11/03 Aspirin/Caffeine PO 1727 Heparin Sodium 5,000 UNIT Q8 11/03 0600 AC 11/05 (Porcine) SC 1412 Hydralazine HCl 20 MG BID 11/05 1359 AC 11/05 PO 1426 Labetalol HCl 600 MG BID 11/04 2100 AC 11/05 PO 0839 Labetalol HCl 400 MG TID 11/03 1400 DC 11/04 PO 1343 Oxycodone/ 1 TAB ONCE ONE 11/04 1830 DC 11/04 Acetaminophen PO 11/04 1831 1825 Impression/Plan Impression/Problem List Impression: 42 y/o F pt with a h/o HTN and hypothyroidism s/p for chronic HTN with superimposed preeclampsia on 10/23 presented with hypertensive urgency requiring IV labetalol drip which was then transitioned to oral. Impression Hypertensive urgency. Mild elevation of creatinine Recent hx of preeclampsia. Plan Continue labetaolol 600mg bid Goal of SBP <140 Avoid nephrotoxic agents including ACEIs and NSAIDs in the setting of mild elevation of creatinine. Anticipate discharge within 24 hrs if bp stable code status: FC DVT PPX:Heparin Problem List: 1. Hypertensive urgency Pain Ratin Tomorrow's Labs & Rationales: icu bundle Plan DVT/Prophylaxis: mechanical, pharmacological
--- NOTE | 2017-11-05 11:17 | PN- Pulmonary ---
Subjective HPI/Critical Care Issues: Seen [facility]. She is seated comfortably and denies any ehadaches ,vision changes, chest pain or palpitations. Her BP yesterday averaged in 150s Systolic, her labetalol was changed to 600mg bid. Objective Current Medications: Current Medications Sig/Krish Start time Last Medication Dose Route Stop Time Status Admin Acetaminophen/ 2 CAP Q8P PRN 11/03 1400 AC 11/03 Aspirin/Caffeine PO 1727 Heparin Sodium 5,000 UNIT Q8 11/03 0600 AC 11/05 (Porcine) SC 0640 Labetalol HCl 600 MG BID 11/04 2100 AC 11/05 PO 0839 Labetalol HCl 400 MG TID 11/03 1400 DC 11/04 PO 1343 Oxycodone/ 1 TAB ONCE ONE 11/04 1830 DC 11/04 Acetaminophen PO 11/04 1831 1825 Vital Signs & I&O Last 24 Hrs of Vitals and I&O: Vital Signs Date Time Temp Pulse Resp B/P B/P Pulse O2 O2 Flow FiO2 Mean Ox Delivery Rate 11/05 0839 152/90 11/05 08 97.3 76 16 160/86 99 Room Air / 0600 158/98 07/08 0000 99 Room Air 11/04 2213 98.2 66 18 152/92 99 Room Air / 2117 98.2 71 22 160/98 /07 1600 98.9 65 20 136/70 99 Room Air Intake & Output / 1600 07/08 0800 07/08 0000 Intake Total 400 Output Total 450 300 Balance -450 100 Intake, Oral 400 Number 0 Bowel Movements Output, Urine 450 300 Impression/Plan Impression/Plan Impression/Plan: General: no apparent distress. Alert. Eyes: No obvious scleral icterus. HEENT: No jugular venous distention or abnormal jugular venous pulsations. Cardiovascular: Normal intensity S1/S2. PMI not grossly displaced. Respiratory: Lungs clear to auscultation bilaterally. Abdomen: Soft, nontender with no guarding or rebound tenderness. Musculoskeletal: No clubbing or cyanosis noted Skin: warm Neurologic: No gross focal deficits noted. Lymph: No gross lymphadenopathy. Blood work reviewed creatinine 1.2 baseline appears to be 0.8 mag level I.8 Echo appears normal IMPRESSION This is a lady with recent with history of preeclampsia and hypertension now has hypertensive urgency requiring intravenous labetalol now much better. History of preeclampsia which is stable Mild increase in creatinine rule out acute kidney injury due to hypertension versus ALBERT inhibitor use recently causing elevated creatinine RECOMMENDATION Continued by mouth labetelol Continue to watch in the hospital Watch creatinine Avoid ALBERT inhibitor, maintain telemetry cardiology to follow
--- NOTE | 2017-11-05 13:57 | PN- Cardiology ---
Subjective Subjective: * Patient feels well. * BP remains elevated. * mildly increased creatinine of 1.2 * Normal EF with no evidence of LVH on echo. Objective Vital Signs and I&Os Vital Signs Date Time Temp Pulse Resp B/P B/P Pulse O2 O2 Flow FiO2 Mean Ox Delivery Rate 11/05 1157 140/88 11/05 0839 152/90 11/05 08 97.3 76 16 160/86 99 Room Air 11/05 0600 158/98 11/05 0000 99 Room Air 11/04 2213 98.2 66 18 152/92 99 Room Air 11/04 2117 98.2 71 22 160/98 11/04 1600 98.9 65 20 136/70 99 Room Air Intake & Output 11/05 1600 11/05 0000 11/04 1600 11/04 0000 Intake Total 400 1800 240 840 Output Total 450 300 600 500 350 Balance -527 519 5352 -260 490 Intake, IV 0 0 Intake, Oral 400 1800 240 840 Number 0 0 0 1 Bowel Movements Output, Urine 450 300 600 500 350 Physical Exam: General: WD/obese female in NAD; alert and oriented x 3 HEENT: NC/AT, PERRL, EOMI Neck: no JVD Heart: RRR Lungs: clear bilaterally Extremities: no edema Assessment/Plan Assessment/Plan * This patient is noted to have a dramatic improvement in her blood pressure although it is not quite in the ideal range. The patient had a plan to breast feed which I discouraged. Begin a small dose of hydralazine at 20mg BID to help lower blood pressure. Continue telemetry? No
--- NOTE | 2017-11-05 17:12 | PN- OBGYN ---
Surgical Brief Attending Note Brief Attending Note: pt feeling well. c/o episode similar to palpitations earlier today. states meds since adjusted. c/o mild right sided incisional discomfort. no drainage. still breast pumping. bp's 160 / 90s. abd soft nt ff. inc healing well, c/d/i. no ob concerns. to discuss w/ peds bp meds and bf. cont bp mgmt per ccu team.
[2017-11-06 03:07] VITALS: BP 170/80
[2017-11-06 05:57] VITALS: BP 170/110
[2017-11-06 09:23] VITALS: BP 152/100; BP 170/110
[2017-11-06 10:21] VITALS: BP 140/80
[2017-11-06] MEDS ORDERED: ATENOLOL100 M1 PO ×2 (10:59→11:43)
[2017-11-06] MEDS ORDERED: NIFEDIPINE ER30 M2 PO ×2 (10:59→11:43)
[2017-11-06 11:22] VITALS: BP 140/80
--- NOTE | 2017-11-06 11:24 | PN- Cardiology ---
Subjective Subjective: The patient is awake, alert The events of the last 24 hours as well as telemetry were reviewed. Review of Systems: The review of systems is negative for chest pains, palpitations nor lightheadedness. The remainder of the 14 point review of systems is noncontributory with the exception of above. Objective Vital Signs and I&Os Vital Signs Date Time Temp Pulse Resp B/P B/P Pulse O2 O2 Flow FiO2 Mean Ox Delivery Rate 11/06 1021 71 140/80 / 0923 152/100 / 0923 170/110 / 0849 67 170/110 / 0848 67 170/110 / 0557 98.7 66 20 170/110 97 Room Air / 0307 98.8 66 20 170/80 98 Room Air 07/08 2300 142/80 07/08 2205 98.6 75 18 165/85 100 /08 2005 165/90 /2003 165/90 /08 1900 98.2 74 17 170/90 98 Room Air /08 1700 140/88 /08 1532 98.6 72 16 160/90 99 Room Air 07/08 1426 160/92 07/08 1157 140/88 Intake & Output / 1600 07/09 0800 07/09 0000 07/08 1600 07/08 0800 07/08 0000 Intake Total 873 942 8197 400 Output Total 1800 450 300 Balance 100 425 -600 -450 100 Intake, Oral 046 290 9481 400 Number 0 Bowel Movements Output, Urine 1800 450 300 Physical Exam: General: Nontoxic, no apparent distress. HEENT: Sclera and conjunctiva within normal limits, without xanthelasmas. Neck: Carotids 2+ without bruits. Respiratory: Clear to auscultation, air movement is good, without accessory respiratory muscle use. Heart: Regular rate and rhythm, without murmurs, without JVD. Abdomen: Soft, nontender, no masses, normoactive bowel sounds. Extremities: Without clubbing, cyanosis, without edema. Neuro: Nonfocal exam, strength, 5 out of 5 Skin: Within normal limits without lesions. Psych: Mood and affect: Normal Current Medications: Current Medications Sig/Krish Start time Last Medication Dose Route Stop Time Status Admin Acetaminophen/ 2 CAP Q8P PRN 11/03 1400 AC 11/03 Aspirin/Caffeine PO 1727 Calcium Carbonate 500 MG DAILY PRN 11/05 2330 AC 11/05 PO 2323 Heparin Sodium 5,000 UNIT Q8 11/03 0600 AC 11/06 (Porcine) SC 0538 Hydralazine HCl 20 MG BID 11/05 1359 AC 11/06 PO 0849 Labetalol HCl 600 MG BID 11/04 2100 AC 11/06 PO 0848 Oxycodone/ 1 TAB ONCE ONE 11/05 2114 DC 11/05 Acetaminophen PO 11/056 2125 Patient Medication 1 ED ONE ONE 11/06 0815 DC 11/06 Teaching ED 11/06 0816 0849 Results Last 48 Hrs of Labs/Mics: Laboratory Tests 11/06/17 0905: Anion Gap 14, Estimated GFR 50 L, BUN/Creatinine Ratio 9.2 11/05/17 0540: Anion Gap 10, Estimated GFR 50 L, BUN/Creatinine Ratio 11.7 Assessment/Plan Assessment/Plan The patient is a 42-year-old woman with a past medical history of hypertension and hypothyroidism. She presents approximately 1 week , with preeclampsia. 1. preeclampsia: The patient's blood pressures are slightly improved (systolic); however, are not at goal. We have discussed the need for strict sodium intake as well as optimizing her medication regimen. At this point, maintenance of an agent such as labetalol versus switching to an agent such as atenolol will be maintained. We will as well and an agent such as nifedipine for added blood pressure control. 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 To track her blood pressures at home, and in the office. We have discussed the likelihood of recurrence with subsequent pregnancies. Continue telemetry? No
[2017-11-06 13:54] VITALS: BP 130/70
--- NOTE | 2017-11-06 15:34 | PN- Housestaff ---
See Addendum Subjective Follow-up For: Hypertensive Urgency Subjective: Patient seen and examined at bedside. Patient denies headaches blurry, blurry vision, chest pain, palpitations, dizziness, shortness of breath, edema. Patient states she has to go home since she Recently had a baby is. Patient states she has a history of anxiety which is contributing to her hypertension is requesting something for anxiety, states it would help lower her blood pressure. Review of Systems Constitutional: Denies: chills, diaphoresis, fever. Cardiovascular: Denies: chest pain, edema, palpitations. Respiratory: Denies: cough, short of breath. Neurological/Psychological: Reports: anxiety. Denies: confusion, headache. Objective Last 24 Hrs of Vital Signs/I&O Vital Signs Date Time Temp Pulse Resp B/P B/P Pulse O2 O2 Flow FiO2 Mean Ox Delivery Rate 11/06 1354 98.2 79 18 130/70 99 Room Air 11/06 1122 69 140/80 99 Room Air 11/06 1021 71 140/80 11/06 0923 152/100 / 0923 170/110 / 0849 67 170/110 / 0848 67 170/110 / 0557 98.7 66 20 170/110 97 Room Air / 0307 98.8 66 20 170/80 98 Room Air 07/08 2300 142/80 07/08 2205 98.6 75 18 165/85 100 07/08 2005 165/90 07/08 2004 165/90 07/08 1900 98.2 74 17 170/90 98 Room Air / 1700 140/88 07/08 1532 98.6 72 16 160/90 99 Room Air Intake & Output 11/06 1600 /09 0800 07/ 0000 Intake Total 480 100 425 Output Total Balance 480 100 425 Intake, Oral 480 100 425 Number 0 Bowel Movements Physical Exam General Appearance: Alert, Oriented X3, Cooperative Skin: No Rashes HEENT: Atraumatic, EOMI Cardiovascular: Regular Rate, Normal S1, Normal S2 Lungs: Clear to Auscultation, Normal Air Movement Abdomen: Normal Bowel Sounds, Soft, No Tenderness Assessment/Plan Assessment: 42 y/o F pt with a h/o HTN and hypothyroidism s/p for chronic HTN with superimposed preeclampsia on 10/23 that came to the ED c/o headache and blurry vision. She was transferred to the ICU for management of her hypertensive urgency. Patient was transferred to [facility] on 11/06/17. Problem List: 1. Hypertensive Urgency #Hypertensive Urgency Patient BP has been 140-170s/80-110. Patient is asymptomatic. Plan: -Switch to PO Atenolol 100mg and Nifedipine 30mg. -DC Hydralazine, Labetaolol Plan to discharge home today on PO meds after her BP's come down. Will have patient follow up w/ Dr. Fitch as outpatient. Problem List: 1. Hypertensive urgency Pain Ratin Pain Location: n/a Pain Goal: Remain pain free Pain Plan: n/a Tomorrow's Labs & Rationales: none
== END 2017-11-06 15:05 | DRG 561 ==
LOC: ERH 15:15 → 2NA 11-03 01:39 → CRI 11-03 01:39 → ERHI 11-03 01:39 → EDBEDREQ 11-03 02:53 → EDBEDREQTM 11-03 02:53 → ERHI 11-03 02:55 → ENRESERV 11-03 02:55 → CRI 11-03 05:26 → ENTRNSPT 11-05 18:24 → EDTRNSPTSTS 11-05 18:38 → EDTRNSPT 11-05 18:38 → 2NA 11-05 18:53 → CMPTRNSPT 11-05 18:57 → 2NA 11-06 07:46 → ENPENDDIS 11-06 12:13 → ENTRNSPT 11-06 14:51 → CMPTRNSPT 11-06 15:03 → 2NA 11-06 15:05
PROVIDERS: Physician Assistant Medical
DX: O11.5 Pre-existing hypertension with pre-eclampsia, complicating the puerperium (principal); E03.9 Hypothyroidism, unspecified; H53.8 Other visual disturbances; R60.9 Edema, unspecified; E66.9 Obesity, unspecified; Z68.37 Body mass index [BMI] 37.0-37.9, adult; K21.9 Gastro-esophageal reflux disease without esophagitis; K44.9 Diaphragmatic hernia without obstruction or gangrene
CPT/HCPCS: 2NAP; CCU; 36592; 81001; 82436; 93005; 93010; 93306; J0131; J0360; J1644; J1885